=== PATIENT | female | born 1955 | race Caucasian/White ===

== ENCOUNTER 2022-03-23 08:44 | Outpatient (CLI) | payer MEDICARE, SELFPAY ==
[2022-03-23 15:03] LABS: Albumin* 4.3 g/dL (3.3-5.0); Chloride* 103 mmol/L (96-114)
[2022-03-23 15:04] LABS: Potassium* 4.3 mmol/L (3.6-5.1); Sodium* 139 mmol/L (135-149)
[2022-03-23 15:06] LABS: Aspartate Amino Transferase* 28 U/L (12-35); Bilirubin Total* 0.9 mg/dL (0.1-1.5); Blood Urea Nitrogen* 19 mg/dL (7-30); Carbon Dioxide* 27 mmol/L (20-32); Cholesterol* 198 mg/dL (90-199); Creatinine* 0.7 mg/dL (0.5-1.5); Estimated Glomerular Filt Rate 96 ml/min; Glucose* 116 mg/dL (60-115)
[2022-03-23 15:07] LABS: Alanine Aminotransferase* 23 U/L (4-35); Alkaline Phosphatase* 88 U/L (40-150); Calcium* 9.4 mg/dL (8.4-10.6); HDL Cholesterol* 56 mg/dL (>=50); LDL Cholesterol Calculated 118 mg/dL (<100); Triglycerides* 122 mg/dL (40-149)
[2022-03-23 15:34] LABS: TSH With Reflex to FT4* 0.582 uIU/mL (0.270-4.200)
== END 2022-03-23 08:45 | disposition home or self-care (01) ==
PROVIDERS: PCP Family Medicine; Visit Provider Family Medicine
DX: Z01.419 Encounter for gynecological examination (general) (routine) without abnormal findings (principal); E03.9 Hypothyroidism, unspecified; I10 Essential (primary) hypertension; E78.5 Hyperlipidemia, unspecified; F41.9 Anxiety disorder, unspecified
CPT/HCPCS: 80053; 80061; 84443

== ENCOUNTER 2023-03-26 09:17 | Outpatient (CLI) | payer MEDICARE, SELFPAY | END 2023-03-26 09:18 | disposition home or self-care (01) | PROVIDERS: PCP Family Medicine; Visit Provider Family Medicine | DX: Z00.00 Encounter for general adult medical examination without abnormal findings (principal); I10 Essential (primary) hypertension; E78.5 Hyperlipidemia, unspecified; E03.9 Hypothyroidism, unspecified; Z13.21 Encounter for screening for nutritional disorder | CPT/HCPCS: 80048; 80061; 82607; 84439; 84443 ==

== ENCOUNTER 2023-04-09 07:40 | Outpatient (CLI) | payer MEDICARE, SELFPAY | END 2023-04-09 07:41 | disposition home or self-care (01) | LOC: NFLDREF 04-13 09:12 | PROVIDERS: PCP Family Medicine; Referring Provider Family Medicine; Visit Provider Family Medicine | DX: R73.03 Prediabetes (principal) | CPT/HCPCS: 82947 ==

== ENCOUNTER 2023-04-28 08:57 | Outpatient (CLI) | payer MEDICARE, SELFPAY ==
[2023-04-28 11:35] LABS: Appearance Urine Clear (Clear); Bilirubin Urine Negative (Negative); Blood Urine Negative (Negative); Color Urine Yellow (Yellow); Glucose Urine Negative (Negative); Ketones Urine Negative (Negative); Leukocyte Esterase Urine Negative (Negative); Nitrite Urine Negative (Negative); Protein Urine Negative (Negative); Urobilinogen Urine 0.2 (0.2-1.0)
== END 2023-04-28 08:58 | disposition home or self-care (01) ==
PROVIDERS: PCP Family Medicine; Visit Provider Obstetrics & Gynecology
DX: N81.4 Uterovaginal prolapse, unspecified (principal)
CPT/HCPCS: 81003; 87086

== ENCOUNTER 2023-06-15 14:08 | Outpatient (CLI) | payer MEDICARE, SELFPAY ==
[2023-06-16 00:15] LABS: Glucose* 140 mg/dL (60-115)
== END 2023-06-15 14:09 | disposition home or self-care (01) ==
LOC: LONREF 14:09
PROVIDERS: PCP Family Medicine; Visit Provider Family Medicine
DX: E13.9 Other specified diabetes mellitus without complications (principal)
CPT/HCPCS: 82947

== ENCOUNTER 2023-11-26 07:00 | Outpatient (CLI) | payer MEDICARE, SELFPAY ==
--- NOTE | 2023-11-26 07:15 | US_ITS ---
Patient: JORGE DUBOIS Facility:?[facility] Patient ID:?[id number] Site Patient ID:?[id number]. Site :?[id number] Study:?US-OB Pelvis TA/TV Pelvic US-11/26/2023 8:18:02 AM Ordering Physician:Candace Monique Final Report: INDICATION: Fibroids. Postmenopausal. COMPARISON: None available. FINDINGS: Transvaginal and transabdominal ultrasound examination of the female pelvis was performed. Initial examination is performed with transabdominal technique and transvaginal technique is used for better visualization of the pelvic structures. The uterus is septate, with 2 well-defined cornua, but no sign of any surface groove. The uterus is anteverted with no evidence of mass. Specifically, no fibroids are evident. It measures 7.8 x 4.0 x 5.6 cm. There is heterogeneous echogenicity suggesting diffuse fibroid degeneration. There is a tiny amount of fluid in the cervical canal, of no clinical concern. The endometrial lining is increased in thickness at 7 mm for a postmenopausal patient, nonspecific. This could represent either endometrial hyperplasia or endometrial malignancy. The ovaries are normal in appearance and size, the right measuring 2.2 x 1.0 x 1.8 cm and the left measuring 1.8 x 0.9 x 1.3 cm. There is normal color doppler flow in both ovaries. There is no sign of free fluid in the pelvis. IMPRESSION: 1. No sign of any dominant fibroid in the normal-sized uterus. Myometrial heterogeneity consistent with diffuse fibroid degeneration. 2. Endometrial lining is mildly thickened at 7 millimeters for a postmenopausal patient. The appearance is nonspecific, differential includes endometrial hyperplasia or endometrial malignancy. 3. Normal appearance of the ovaries. Dictated by Darnell Cox MD @ 11/26/2023 10:12:58 AM Signed by:?Darnell Cox MD @11/26/2023 10:12:58 AM (Electronic Signature)
== END 2023-11-26 07:01 | disposition home or self-care (01) ==
LOC: US 07:00
PROVIDERS: PCP Family Medicine; Visit Provider Obstetrics & Gynecology
DX: D25.9 Leiomyoma of uterus, unspecified (principal); R93.89 Abnormal findings on diagnostic imaging of other specified body structures; Z78.0 Asymptomatic menopausal state
CPT/HCPCS: 76830; 76856

== ENCOUNTER 2023-12-13 08:56 | Outpatient (CLI) | payer MEDICARE, SELFPAY | END 2023-12-13 08:57 | disposition home or self-care (01) | LOC: LKVREF 08:57 | PROVIDERS: PCP Family Medicine; Visit Provider Family Medicine | DX: Z01.818 Encounter for other preprocedural examination (principal) | CPT/HCPCS: 80048 ==

== ENCOUNTER 2023-12-23 06:03 | Day surgery (SDC) | payer MEDICARE, SELFPAY ==
[2023-12-23] VITALS (21 sets, daily range): BP systolic 103–139; BP diastolic 54–86; PULSE 49–78; RESP 12–18; TEMP 35.6–36.7; O2SAT 90–96; BMI 38.3
--- OUTSIDE RECORDS SUMMARY | 2023-12-23 06:07 | XMS_ITS | Clinical Summary ---
Author Organization [facility] Address [address] [place] [address] Care Team Providers Care Paper Cone Machine Tender Name Role Phone Unavailable Primary Care Provider Unavailabl e Source Comments You are receiving this document as you are listed as the primary care provider,follow-up provider, or the patient has been referred to you for consultation.This is in compliance with the Medicare andMedicaid EHR Incentive Program,which states Providers who transition their patient to another setting of careor provider of care or refers their patient to another provider of care shouldprovide summary care record for each transition of care or referral. Etacts Allergies Active Allergy Reactions Criticality Noted Date Comments Sulfa Antibiotics 04/13/2020 Eye drops Medications Medication Sig Dispensed Refills Start Date End Date Status fluticasone propionate (FLONASE) 50 MCG/ACT nasal solution Place 1 [place] into both nostrils two times a day. 02/22/2020 Active FLOVENT HFA 220 MCG/ACT inhaler inhale 2 PUFFs by inhalation route twice daily. 01/14/2020 Active hydroCHLOROthiazide (ORETIC) 25 MG tablet 03/17/2020 Active levothyroxine (SYNTHROID) 150 MCG tablet Take 150 mcg by mouth daily. 01/26/2020 Active lisinopril (ZESTRIL) 2.5 MG tablet Take 2.5 mg by mouth daily. 01/14/2020 Active potassium chloride SA (KLOR-CON) 10 MEQ controlled release tablet Take 10 mEq by mouth daily. 02/11/2020 Active pravastatin (PRAVACHOL) 40 MG tablet take 1 tablet (40 MG) by mouth at bedtime. 01/14/2020 Active sertraline (ZOLOFT) 50 MG tablet Take 50 mg by mouth daily. 02/11/2020 Active Active Problems No known active problems Social History Tobacco Use Types Packs/Day Years Used Date Smoking Tobacco: Never Smokeless Tobacco: Never Sex and Gender Information Value Date Recorded Sex Assigned at Not on file Gender Identity Not on file Sexual Orientation Not on file Last Filed Vital Signs Vital Sign Reading Time Taken Comments Blood Pressure 145/76 04/13/2020 3:00 PM CDT Pulse 95 04/13/2020 3:00 PM CDT Temperature 36.6 ??C (97.9 ??F) 04/13/2020 3:00 PM CD T Respiratory Rate 18 03/24/2020 12:35 PM CDT Oxygen Saturation 97% 04/13/2020 3:00 PM CDT Inhaled Oxygen Concentration - - Weight - - Height - - Body Mass Index - - Plan of Treatment Health Maintenance Due Date Last Done Comments Colon Cancer Screening Plan Due 1955 Hep C Screening (Preventive Services) 1955 Mammogram 1955 Adult Preventive Visit 1974 Cholesterol 2001 DTaP/Tdap/Td (2 - Tdap) 10/29/2021 10/30/2011, 05/12 Pneumococcal 65+ Yrs (2 - PCV) 2021 06/10/2019 COVID-19 Vaccine ( season) 2023 09/22/2020, 08/25/2020 Influenza (Season Ended) 2024 020, 05/10/2019, 05/15/2018, Additional history exists HepA Aged Out 01/03/1999 No longer eligi ble based on patient's age to complete this topic Zoster/Shingles Completed 10/30/2017, 10/2017, 12/07/2016 HepB Aged Out No longer eligi ble based on patient's age to complete this topic Hib Aged Out No longer eligi ble based on patient's age to complete this topic IPV (Polio) Aged Out No longer eligi ble based on patient's age to complete this topic MCV4 Aged Out No longer eligi ble based on patient's age to complete this topic
--- OUTSIDE RECORDS SUMMARY | 2023-12-23 06:07 | XMS_ITS | Clinical Summary ---
Author Organization [facility] Address [place], [place] [address] Care Team Providers Care Rail Tractor Operator Name Role Phone Pcp, No Primary Care Provider Unavailabl e Allergies Active Allergy Reactions Criticality Noted Date Comments Sulfa (Sulfonamide Antibiotics) 08/27 In eye drops Medications Medication Sig Dispensed Refills Start Date End Date Status aspirin 81 mg tablet Take 81 mg by mouth once daily with a meal. Active multivitamin (MVI) tablet Take 1 tablet by mouth once daily. Active Fish Oil-DHA-EPA 1,200-144-216 mg Cap Take by mouth once daily. Active CALCIUM CARBONATE/VITAMIN D3 (CALCIUM 600 + D ORAL) Take by mouth once daily. Active GLUC HOLGUIN/CHONDRO HOLGUIN A/VIT C/MN (GLUCOSAMINE 1500 COMPLEX ORAL) Take by mouth once daily. Active lisinopril (PRINIVIL; ZESTRIL) 5 mg Tab Take 2.5 mg by mouth once daily. Active cetirizine (ZYRTEC) 10 mg tablet Take 10 mg by mouth once daily. Active hydrochlorothiazide 50 mg tablet Take 50 mg by mouth once daily. Active sertraline (ZOLOFT) 50 mg tablet Take 1 tablet by mouth once daily. 0 01/18/2010 Active levothyroxine (SYNTHROID) 150 mcg tablet Take 1 tablet by mouth once daily. 30 tablet 6 05/30/2010 Active fluticasone-salmetero l (ADVAIR DISKUS) 250-50 mcg/Dose diskus inhalerIndications:As thma Inhale 1 Puff by mouth every 12 hours. 1 Inhaler 0 10/24/2011 Active Active Problems Problem Noted Date Diagnosed Date DJD (degenerative joint disease) 09/18/2009 Hypertension 09/18/2009 Environmental allergies 09/18/2009 Hypothyroidism 09/18/2009 Diffuse cystic mastopathy 09/18/2009 Unspecified examination 09/18/2009 Overview: Last PAP smear: 12/2007 Last Breast Exam: 12/2007 Last mammogram: 12/2007 Last lipids: 11/2006 Last colonoscopy: 05/2008 Immunizations Name Administration Dates Next Due Hepatitis A (Adult) 01/03/1999,12/15/1996 Hepatitis B (Adult) 11/29/2001,07/29/2001,2000 Influenza, IIV3 (Age >=3 years) 04/15/2009 MMR 01/03/1999 Td (Age >=7 Years) 05/12/2006 Family History Medical History Relation Name Comments Heart Disease Father Cancer-breast Mother Relation Name Status Comments Father Mother Social History Tobacco Use Types Packs/Day Years Used Date Smoking Tobacco: Never Smokeless Tobacco: Never Alcohol Use Standard Drinks/Week Comments Not Asked 0 (1 standard drink = 0.6 oz pur e alcohol) Sex and Gender Information Value Date Recorded Sex Assigned at Not on file Gender Identity Not on file Sexual Orientation Not on file Obstetrics History Last Filed Vital Signs Vital Sign Reading Time Taken Comments Blood Pressure 122/70 09/11/2012 3:09 PM BOAT OUTBOARD ENGINE MECHANIC Pulse 88 09/11/2012 3:09 PM BOAT OUTBOARD ENGINE MECHANIC Temperature 37.6 ??C (99.6 ??F) 09/11/2012 3:09 PM CS T Respiratory Rate 16 09/11/2012 3:09 PM BOAT OUTBOARD ENGINE MECHANIC Oxygen Saturation 97% 09/11/2012 3:09 PM BOAT OUTBOARD ENGINE MECHANIC Inhaled Oxygen Concentration - - Weight 93.4 kg (206 lb) 06/13/2011 3:26 PM BOAT OUTBOARD ENGINE MECHANIC Height 157.5 cm (5' 2) 06/13/2011 3:26 PM BOAT OUTBOARD ENGINE MECHANIC Body Mass Index 37.68 06/13/2011 3:26 PM BOAT OUTBOARD ENGINE MECHANIC Plan of Treatment Health Maintenance Due Date Last Done Comments Tdap 11/20/1967 Depression screening for age 12+ 1968 BMI (ht and wt on same day) for age 18+ 1974 Hepatitis C screening for age 18-79 1974 Colonoscopy through age 75 2001 Lipids for age 45-75 2001 Mammogram for age 45-75 2001 Zoster (shingles) series for age 50+ (1 of 2) 11/20/19 07 Tetanus booster 05/12/2016 05/12/2006 DEXA/DXA scan for age 65+ 2021 Pneumococcal series for age 65+ (1 of 1 - PCV) 022 COVID-19 vaccine series (1 - 2022- season) 3 Influenza for age 65+ 03/26/2024 04/15/2009 Care Teams Rail Tractor Operator Relationship Specialty Start Date End Date Pcp, No . PCP - General 01/06/11
--- OUTSIDE RECORDS SUMMARY | 2023-12-23 06:07 | XMS_ITS | Encounter Summary ---
Author Organization [facility] Address [address] [place] [address] Care Team Providers Care Tail Edger Name Role Phone Juan Rock MD Primary Care Provider Garrett Madera MD Primary Care Provider [phone] Reason for Visit * Reason Comments Medication Refill zoloft Encounter Details Date Type Department Care Team (Late st Contact Info) Description 03/26/2017 Refill [facility] [address] [place] [address] Juan Rock MD NO INFO AVAILABLE 02/16/23 Medication Refill (zoloft ) Social History Tobacco Use Types Packs/Day Years Used Date Smoking Tobacco: Never Smokeless Tobacco: Never Alcohol Use Standard Drinks/Week Comments No 0 (1 standard drink = 0.6 oz pur e alcohol) Sex and Gender Information Value Date Recorded Sex Assigned at Not on file Gender Identity Not on file Sexual Orientation Not on file documented as of this encounter Miscellaneous Notes * Telephone Encounter - Bailey Corcoran ([place]), NITHYA - 03/26/2017 12:13 PM CDT Routing refill request to provider for review/approval because: diagnosis not listed on [facility] protocol for this medication Zoloft Last Written Prescription Date: 03/10/16 Last Fill Quantity: 90, # refills: 3 Last Office Visit with [facility] primary care provider: 09/23/16 Last PHQ-9 score on record= PHQ-9 SCORE 11/27/2011 Total Score 0 documented in this encounter Plan of Treatment Not on file documented as of this encounter Visit Diagnoses Diagnosis PMDD (premenstrual dysphoric disorder) Premenstrual tension syndromes documented in this encounter Care Teams Tail Edger Relationship Specialty Start Date End Date Juan Rock MD PCP - General mortgage loan counselor 02/15/15 04/20/19 Garrett Lee MD PCP - General Family Practice 04/21/19 documented as of this encounter
--- OUTSIDE RECORDS SUMMARY | 2023-12-23 06:07 | XMS_ITS | Referral Summary ---
Author Organization [facility] Address [address] [place] [address] Care Team Providers Care Scientific Technical Writer Name Role Phone Garrett Lee MD Primary Care Provider [phone] Allergies Active Allergy Reactions Criticality Noted Date Comments Cats 05/14/2014 Mold 05/14/2014 Sulfa Antibiotics 05/08/2011 EYE DROPS Medications Medication Sig Dispensed Refills Start Date End Date Status GLUCOSAMINE CHONDRO COMPLEX 500-400 MG OR TABS 1500mgGL/1200CH daily Active FISH OIL 1000 MG OR CAPS one tablet daily Active CALCIUM /VITAMIN D TABS 600-125 MG-IU OR one tablet BID Active MULTI-DAY PLUS IRON OR TABS Active ASPIRIN 81 MG OR TABS 1 tab po QD (Once per day) 100 3 12/08/2004 Active LISINOPRIL 2.5 MG OR TABS 1/2 tab qd Active VITAMIN D 400 UNIT OR TABS 0 03/19/2008 Active levothyroxine (SYNTHROID, LEVOTHROID) 150 MCG tablet Take 1 tablet by mouth daily. 90 tablet 3 11/03/2010 Active pravastatin (PRAVACHOL) 40 MG tablet Take 1 tablet by mouth daily. 90 tablet 3 11/03/2010 Active cetirizine (ZYRTEC) 10 MG tablet Take 1 tablet by mouth daily. 90 tablet 3 11/03/2010 Active fluticasone (FLOVENT HFA) 220 MCG/ACT inhaler Inhale 2 puffs into the lungs 2 times daily 3 Inhaler 3 05/14/2014 Active fluticasone (FLONASE) 50 MCG/ACT nasal spray [place] 1-2 sprays into both nostrils daily 3 Package 1 05/14/2014 Active HYDROCHLOROTHIAZIDE PO Take 25 mg by mouth Active potassium chloride (K-DUR) 10 MEQ tablet Take by mouth daily Active sertraline (ZOLOFT) 50 MG tabletIndications:PM DD (premenstrual dysphoric disorder) take one tablet by mouth daily 90 tablet 10/07/2017 Active Active Problems Problem Noted Date Diagnosed Date Pelvic relaxation 10/05/2016 HYPERLIPIDEMIA LDL GOAL <160 05/25/2010 Family history of malignant neoplasm of breast 0 02/14/2007 Acquired hypothyroidism 08/22/2002 Overview: Problem list name updated by automated process. Provider to review Hyperlipidemia 08/22/2002 Overview: Problem list name updated by automated process. Provider to review Essential hypertension, benign 08/22/2002 Resolved Problems Problem Noted Date Diagnosed Date Resolved Date Achilles tendinitis of left lower extremity 04/21/2019 07/11/2019 Tendonitis, Achilles, left 09/21/2018 0 03/01/2019 Achilles tendinitis of right lower extremity 6 08/03/2016 Immunizations Name Administration Dates Next Due Influenza (IIV3) PF 05/08/2011 TD,PF 7+ (Tenivac) 08/17/2006,03/11/1990 Social History Tobacco Use Types Packs/Day Years Used Date Smoking Tobacco: Never Smokeless Tobacco: Never Alcohol Use Standard Drinks/Week Comments No 0 (1 standard drink = 0.6 oz pur e alcohol) Adolescent Education Answer Date Record ed Getting School Help Needed Not on file 05/02 Sex and Gender Information Value Date Recorded Sex Assigned at Not on file Gender Identity Not on file Sexual Orientation Not on file Last Filed Vital Signs Vital Sign Reading Time Taken Comments Blood Pressure 130/82 04/13/2020 6:45 PM CDT Pulse 80 04/13/2020 6:45 PM CDT Temperature 36.1 ??C (97 ??F) 04/13/2020 4:38 PM CDT Respiratory Rate 18 04/13/2020 4:38 PM CDT Oxygen Saturation 97% 04/13/2020 6:45 PM CDT Inhaled Oxygen Concentration - - Weight 99.7 kg (219 lb 12.8 oz) 01/13/2016 5:45 PM CDT Height 157.5 cm (5' 2) 01/13/2016 5:45 PM CDT Body Mass Index 40.2 01/13/2016 5:45 PM CDT Plan of Treatment Not on file Procedures Procedure Name Priority Date/Time Associated Diagnosis Comments MA SCREENING BILATERAL W/ PORETR Routine 11/26/2022 4:28 PM CDT Breast cancer screening by mammogram BASIC METABOLIC PANEL STAT 04/13/2020 5:02 PM CDT PAP IMAGED THIN LAYER SCREEN Routine 01/13/2016 12:00 AM CDT COLONOSCOPY Routine 06/22/2008 7:15 AM FURNITURE REPRODUCER HCL TSH Routine 01/12/2008 DIAGNOSIS NOT YET DEFINED CL AFF A.M.A. LIPID PANEL Routine 01/23/2004 9:21 AM CDT Hyperlipidemia Nec/Nos Benign Hypertension from Last 3 Months or Most Recently Relevant to Health Maintenance Results * MA Screen Bilateral w/Porter (11/26/2022 4:28 PM CDT) Anatomical Region Laterality Modality Breast Bilateral Mammography Impressions 11/27/2022 12:41 PM CDT IMPRESSION: ACR BI-RADS Category 1: Negative RECOMMENDED FOLLOW-UP: Annual routine screening mammogram The results and recommendations of this examination will be communicated to the patient. Alea Preciado MD Narrative 11/27/2022 12:41 PM CDT BILATERAL FULL FIELD DIGITAL SCREENING MAMMOGRAM WITH TOMOSYNTHESIS Performed on: 11/26/22 Compared to: 10/06/2021 and 06/30/2018 Technique: ??This study was evaluated with the assistance of Computer-Aided Detection. ??Breast Tomosynthesis was used in interpretation. Findings: The breasts have scattered areas of fibroglandular density. ?? There is no radiographic evidence of malignancy. Garrett Lee MD IMG MAMMOGRAPHY DAVID CABAN * (ABNORMAL) Basic metabolic panel (04/13/2020 5:02 PM CDT) Sodium 138 133 - 144 mmol/L 04/13/2020 5:21 PM CDT [facility] Potassium 3.7 3.4 - 5.3 mmol/L 04/13/2020 5:21 PM CDT [facility] Chloride 104 94 - 109 mmol/L 04/13/2020 5:21 PM T [facility] Carbon Dioxide 27 20 - 32 mmol/L 04/13/2020 5:27 PM CDT [facility] Anion Gap 7 3 - 14 mmol/L 04/13/2020 5:27 PM CDT [facility] Glucose 158(H) 70 - 99 mg/dL 04/13/2020 5:27 PM CDT [facility] Urea Nitrogen 15 7 - 30 mg/dL 04/13/2020 5:27 PM T [facility] Creatinine 0.82 0.52 - 1.04 mg/dL 04/13/2020 5:27 PM T [facility] GFR Estimate 76 >60 mL/min/{1. 73_m2} 04/13/2020 5:27 PM T [facility] Comment: Non GFR Calc Starting 07/12/2018, serum creatinine based estimated GFR (eGFR) will be calculated using the Chronic Kidney Disease Epidemiology Collaboration (CKD-EPI) equation. GFR Estimate If Black 89 >60 mL/min/{1. 73_m2} 04/13/2020 5:27 PM T [facility] Comment: GFR Calc Starting 07/12/2018, serum creatinine based estimated GFR (eGFR) will be calculated using the Chronic Kidney Disease Epidemiology Collaboration (CKD-EPI) equation. Calcium 9.2 8.5 - 10.1 mg/dL 04/13/2020 5:27 PM T [facility] Blood specimen (specimen) 04/13/2020 5:02 PM CDT 04/13/2020 5:10 PM CDT Ryann Huang MD LAB - BLOOD ORDERABL ES [facility] [address] [place] [address], [facility] [phone] [facility] [address] [place], [place] [address] [phone] * PAP imaged thin layer, screen (01/13/2016 12:00 AM CDT) PAP LASHAE Meyer Report Patient Name: LEIGH DUBOIS MR#: [id number] Specimen #: [id number] Collected: 01/13/2016 Received: 01/15/2016 Reported: 01/16/2016 14:37 Ordering Phy(s): JAH ROCK SPECIMEN/STAIN PROCESS: Pap imaged thin layer prep screening (Surepath, FocalPoint with guided screening) ? Pap-Cyto x 1, Reflex HPV if NIL/ASCUS/LSIL x 1 SOURCE: Cervical, endocervical Pap imaged thin layer prep screening (Surepath, FocalPoint with guided screening) SPECIMEN ADEQUACY: Satisfactory for evaluation. -Transformation zone component present. CYTOLOGIC INTERPRETATION: Negative for Intraepithelial Lesion or Malignancy Electronically signed out by: CHANDLER Julien ??(ASCP) Processed and screened at [facility], [facility] CLINICAL HISTORY: Ablation Post Menopausal, Previous normal pap Date of Last Pap: 05/14/14, Papanicolaou Test Limitations: ??Cervical cytology is a screening test with limited sensitivity; regular screening is critical for cancer prevention; Pap tests are primarily effective for the diagnosis/preventi on of squamous cell carcinoma, not adenocarcinomas or other cancers. TESTING LAB LOCATION: [address] [place], [place] ??[address] COLLECTION SITE: Client: ??[facility] Location: ROSARIO MEYER (R) Cytologic material (specimen) 01/13/2016 01/15/2016 12:45 PM CDT Jah Rock MD LAB - [facility] SPECIMEN COPATH * COLONOSCOPY (06/22/2008 7:15 AM FURNITURE REPRODUCER) COLONOSCOPY Endoscopy Patient Name: Leigh Dubois ? Gender: F ? Procedure Date: 06/22/2008 7:15 AM ? Date of : 1955 ?Age: 52 ? Admit Type: Outpatient ? Attending MD: Charly Macedo MD ? Procedure: ? Colonoscopy Indications: ? Average risk screening for malignant neoplasm in the ? colon Providers: ? Charly Macedo MD Referring : ?Garrett Lee MD, Jah Rock MD Medicines: ? Fentanyl 100 micrograms IV, Midazolam 2 mg IV, Atropine ? 0.6 mg IV Complications: ? No immediate complications Procedure: ? - Prior to the procedure, a History and Physical was ? performed, and patient medication allergies were ? reviewed. The patient is competent. The risks and ? benefits of the procedure and the sedation options and ? risks were discussed with the patient. All questions ? were answered and informed consent was obtained. Patient ? identification and proposed procedure were verified by ? the physician in the procedure room. Mental Status ? Examination: alert and oriented. Airway Examination: ? normal oropharyngeal airway and neck mobility. ? Respiratory Examination: clear to auscultation. CV ? Examination: normal. ASA Grade Assessment: I - A normal, ? healthy patient. After reviewing the risks and benefits, ? the patient was deemed in satisfactory condition to ? undergo the procedure. The anesthesia plan was to use ? moderate sedation / analgesia (conscious sedation). ? Immediately prior to administration of medications, the ? patient was re-assessed for adequacy to receive ? sedatives. The heart rate, respiratory rate, oxygen ? saturations, blood pressure, adequacy of pulmonary ? ventilation, and response to care were monitored ? throughout the procedure. The physical status of the ? patient was re-assessed after the procedure. ? After obtaining informed consent, the colonoscope was ? passed under direct vision. Throughout the procedure, ? the patient's blood pressure, pulse, and oxygen ? saturations were monitored continuously. The [id number] ? #[id number] was introduced through the anus and advanced to ? the ileum. The colonoscopy was performed without ? difficulty. The patient tolerated the procedure well. ? The quality of the prep was good. ? Findings: ? The digital rectal exam was normal. The rectum, sigmoid colon, ? descending colon, splenic flexure, transverse colon, hepatic flexure, ? ascending colon, cecum, ileocecal valve and ileum appeared normal. The ? retroflexed view of the anal verge was normal and showed no anal or ? rectal abnormalities. The terminal ileum appeared normal. ? Impression: ?- The rectum, sigmoid colon, descending colon, splenic ? flexure, transverse colon, hepatic flexure, ascending ? colon, cecum, ileocecal valve and terminal ileum are ? normal. ? - The terminal ileum is normal. Recommendation: ?- Collect Hemoccults on three spontaneously passed ? stools annually. ? - Flexible Sigmoidoscopy in 3 years. ? - Return to primary care physician PRN. ? Raj Macedo M.D Charly Macedo MD Signed Date: 06/22/2008 8:03 AM Number of Addenda: 0 I was physically present for the entire viewing portion of the exam. Note initiated on 06/22/2008 7:17 AM RADIOLOGY RESULTS COLONOSCOPY RADIOLOG Y RESULTS 06/22/2008 7:15 AM FURNITURE REPRODUCER Garrett Lee MD PROCEDURES RADIOLOGY RESULTS * TSH [[id number]] (01/12/2008) Pathologist [facility] TSH 1.470@ mcU/mL MISYS Provider Abstract LABORATORY Performing Organization Address [facility] Co de Phone Number MISYS * A.M.A. LIPID PANEL (01/23/2004 9:21 AM CDT) Pathologist [facility] Cholesterol 194 <200 mg/dL [facility] Comment: Cholesterol Reference Range: <200 ??The NCEP recommends further ? evaluation of: ? 1. ??Patients with cholesterol ? greater than 200 mg/dL ? if additional risk factors ? are present. ? 2. ??All patients with a ? cholesterol greater than ? 240 mg/dL. Triglycerides 136 <150 mg/dL [facility] HDL Cholesterol 54 >40 mg/dL [facility] LDL Cholesterol Calculated 113 <130 mg/dL [facility] VLDL-Cholesterol 27 0 - 30 mg/dL [facility] Cholesterol/HDL Ratio 3.6 0.0 - 5.0 [facility] 01/23/2004 9:21 AM CDT 01/23/2004 9:26 AM CDT Tania Moreno MD LABORATORY [facility] from Last 3 Months or Most Recently Relevant to Health Maintenance Care Teams Scientific Technical Writer Relationship Specialty Start Date End Date Garrett Lee MD PCP - General Family Practice 04/21/19
--- OUTSIDE RECORDS SUMMARY | 2023-12-23 06:07 | XMS_ITS | Encounter Summary ---
Author Organization [facility] Address [address] [place] [address]. [place] [address] Care Team Providers Care Paradichlorobenzene Machine Operator Name Role Phone Juan Rock MD Primary Care Provider Garrett Madera MD Primary Care Provider [phone] Reason for Visit * Reason Comments Medication Refill Encounter Details Date Type Department Care Team (Late st Contact Info) Description 06/18/2017 Refill [facility] [address] [place] [phone] Juan Rock MD NO INFO AVAILABLE 02/16/23 Medication Refill Social History Tobacco Use Types Packs/Day Years [...] encounter Miscellaneous Notes * Telephone Encounter - Denia Henry RN - 06/18/2017 10:24 AM UPHOLSTERY REPAIRER E request received for Zoloft. Last office visit 09/23/16. See last PHQ-9 score and advise. PHQ-9 score: PHQ-9 SCORE 11/27/2011 Total Score 0 Routing refill request to provider for review/approval because: PHQ-9 not current; last office visit more than 6 months ago LSTERY REPAIRER documented in this encounter Plan of Treatment Not on file documented as of this encounter Visit Diagnoses Diagnosis PMDD (premenstrual dysphoric disorder) Premenstrual tension syndromes documented in this encounter Care Teams Paradichlorobenzene Machine Operator Relationship Specialty Start Date End Date Juan Rock MD PCP - General distiller 02/15/15 04/20/19 Garrett Lee MD PCP - General Family Practice 04/21/19 documented as of this encounter
--- OUTSIDE RECORDS SUMMARY | 2023-12-23 06:07 | XMS_ITS | Clinical Summary ---
Author Organization [facility] Address [address] [place] [id number] Care Team Providers Care Md Allergy Immunology Name Role Phone Garrett Lee MD Primary Care Provider [phone] Allergies Active Allergy Reactions Criticality Noted Date [...] Active fluticasone (FLONASE) 50 MCG/ACT nasal spray [place] 1-2 sprays into both nostrils daily 3 [...] (IIV3) PF 05/08/2011 TD,PF 7+ (Tenivac) 08/17/2006,03/11/1990 Family History Medical History Relation Comments C.A.D. Father at age 62--angina for 10 yrs before Thyroid Disease Maternal Grandmother Breast Cancer Mother at 73 C.A.D. Mother Thyroid Disease Mother Thyroid Disease Sister Arthritis Son juv. rheum.--cur rently in remission Relation Status Comments Father Maternal Grandmother Mother Sister Son Social History Tobacco Use Types Packs/Day Years [...] 01/13/2016 5:45 PM CDT Plan of Treatment Health Maintenance Due Date Last Done Comments ADVANCE CARE PLANNING 1955 ANNUAL REVIEW OF HM ORDERS 1955 CT COLONOGRAPHY 1955 DEXA 1955 FIT 1955 FLEX SIG 1955 MICROALBUMIN 1955 sDNA (Cologuard) 1955 HEPATITIS C SCREENING 1974 LIPID 01/22/2005 01/23/2004, 08/19/2002 TSH W/FREE T4 REFLEX 01/11/2009 01/12/2008, 01/23/2004, 08/19/2002 RSV VACCINE ( & 60+) (1 - 1-dose 60+ series) 2016 COLONOSCOPY 06/22/2018 06/22/2008 COLORECTAL CANCER SCREENING 06/22/2018 FALL RISK ASSESSMENT 2021 MEDICARE ANNUAL WELLNESS VISIT 2021 01/13/2016, 05/14/2014, 05/30/2012, Additional history exists COVID-19 Vaccine ( season) 2023 08/14/2022, 05/31/2021, 09/22/2020, Additional history exists GLUCOSE 04/13/2023 04/13/2020, 12/24, 11/28/2004, Additional history exists PHQ-2 (once per calendar year) 2023 INFLUENZA VACCINE (Season Ended) 2024 05/03/2022, 05/07/2021, 05/07/2020, Additional history exists MAMMO SCREENING 11/26/2024 11/26/2022, 09/23, 06/03/2020, Additional history exists DTAP/TDAP/TD IMMUNIZATION (3 - Td or Tdap) 03/09/2031 03/09/2021, 10/30/2011, 08/17/2006, Additional history exists ZOSTER IMMUNIZATION Completed 10/30/2017, 08/29/2017, 12/07/2016 PAP Discontinued 01/25/2019, 0709/2018, 01/13/2016, Additional history exists Pneumococcal Vaccine: 65+ Years Completed 06/07/2022, 06/10/2019 HPV IMMUNIZATION Aged Out No longer e ligible based on patient's age to complete this topic IPV IMMUNIZATION Aged Out No longer e ligible based on patient's age to complete this topic MENINGITIS IMMUNIZATION Aged Out No l onger eligible based on patient's age to complete this topic RSV MONOCLONAL ANTIBODY Aged Out No l onger eligible based on patient's age to complete this topic Procedures Procedure Name Priority Date/Time Associated Diagnosis Comments MA SCREENING BILATERAL W/ PORTER Routine 11/26/2022 4:28 PM CDT Breast cancer screening by mammogram BASIC METABOLIC PANEL STAT 04/13/2020 5:02 PM CDT PAP IMAGED THIN LAYER SCREEN Routine 01/13/2016 12:00 AM CDT COLONOSCOPY Routine 06/22/2008 7:15 AM INSURANCE ATTORNEY HCL TSH Routine 01/12/2008 DIAGNOSIS NOT YET [...] of malignancy. Garrett Lee MD IMG MAMMOGRAPHY ENZOE MEE * (ABNORMAL) Basic metabolic panel (04/13/2020 5:02 PM CDT) Sodium 138 133 - 144 mmol/L 04/13/2020 5:21 PM CDT [facility] Potassium 3.7 3.4 - 5.3 mmol/L 04/13/2020 5:[address] [facility] Chloride 104 94 - 109 mmol/L 04/13/2020 5:[address] [facility] Carbon Dioxide 27 20 - 32 mmol/L 04/13/2020 5:27 PM [facility] Anion Gap 7 3 - 14 mmol/L 04/13/2020 5:27 PM [facility] Glucose 158(H) 70 - 99 mg/dL 04/13/2020 5:27 PM [facility] Urea Nitrogen 15 7 - 30 mg/dL 04/13/2020 5:27 PM [facility] Creatinine 0.82 0.52 - 1.04 mg/dL 04/13/2020 5:27 PM [facility] GFR Estimate 76 >60 mL/min/{1. 73_m2} 04/13/2020 5:27 PM [facility] Comment: Non GFR Calc Starting 07/12/2018, serum creatinine based estimated GFR (eGFR) will be calculated using the Chronic Kidney Disease Epidemiology Collaboration (CKD-EPI) equation. GFR Estimate If Black 89 >60 mL/min/{1. 73_m2} 04/13/2020 5:27 PM [facility] Comment: GFR Calc Starting 07/12/2018, serum creatinine based estimated GFR (eGFR) will be calculated using the Chronic Kidney Disease Epidemiology Collaboration (CKD-EPI) equation. Calcium 9.2 8.5 - 10.1 mg/dL 04/13/2020 5:27 PM CDT [facility] Blood specimen (specimen) 04/13/2020 5:02 PM CDT 04/13/2020 5:10 PM CDT Ryann Huang MD LAB - BLOOD ORDERABL ES [facility] [address] [place] [address], [facility] [phone] [facility] [address] [place] [address], [facility] [phone] * PAP imaged thin layer, screen (01/13/2016 12:00 AM CDT) PAP NIL BETSY Melendez Report Patient Name: LEIGH DUBOIS MR#: [id number] Specimen #: [id number] Collected: 01/13/2016 Received: 01/15/2016 Reported: 01/16/2016 14:37 [...] CHANDLER Julien ??(ASCP) Processed and screened at [facility] CLINICAL HISTORY: Ablation Post Menopausal, Previous normal pap Date of Last Pap: 05/14/14, Papanicolaou Test Limitations: ??Cervical cytology is a screening test with limited sensitivity; regular screening is critical for cancer prevention; Pap tests are primarily effective for the diagnosis/preventi on of squamous cell carcinoma, not adenocarcinomas or other cancers. TESTING LAB LOCATION: [facility] [address] [place], [place] ??[phone] COLLECTION SITE: Client: ??[facility] [address] Location: ROSARIO (R) BETSY Cytologic material (specimen) 01/13/2016 01/15/2016 12:45 PM CDT Jah Rock MD LAB - [facility] SPECIMEN COPATH * COLONOSCOPY (06/22/2008 7:15 AM INSURANCE ATTORNEY) COLONOSCOPY Endoscopy Patient Name: Leigh Dubois ? Gender: F ? Procedure Date: 06/22/2008 7:15 AM ? Date of : 1955 ?Age: 52 ? Admit Type: Outpatient ? Attending MD: Charly Macedo MD ? Procedure: ? Colonoscopy Indications: ? Average risk screening for malignant neoplasm in the ? colon Providers: ? Charly Macedo MD Referring MD: ?Garrett Lee MD, Jah Rock MD Medicines: [...] oxygen ? saturations were monitored continuously. The [id number]-[id number] ? #[id number] was introduced through the anus and advanced [...] Return to primary care physician PRN. ? R Hellen Garcia Charly Macedo MD Signed Date: 06/22/2008 8:03 AM Number of Addenda: 0 I was physically present for the entire viewing portion of the exam. Note initiated on 06/22/2008 7:17 AM RADIOLOGY RESULTS COLONOSCOPY RADIOLOG Y RESULTS 06/22/2008 7:15 AM INSURANCE ATTORNEY Garrett Lee MD PROCEDURES Performing Organization Address [facility] Co de Phone Number RADIOLOGY RESULTS * TSH [[id number]] (01/12/2008) TSH 1.470@ mcU/mL [facility] Provider Abstract LABORATORY Performing Organization Address [facility] de Phone Number MISYS * A.M.A. LIPID PANEL (01/23/2004 9:21 AM CDT) Pathologist [facility] Cholesterol 194 <200 mg/dL [facility] Comment: Cholesterol Reference Range: <200 ??The NCEP recommends further ? evaluation of: ? 1. ??Patients with cholesterol ? greater than 200 mg/dL ? if additional risk factors ? are present. ? 2. ??All patients with a ? cholesterol greater than ? 240 mg/dL. Triglycerides 136 <150 mg/dL [facility] HDL Cholesterol 54 >40 mg/dL [facility] LDL Cholesterol Calculated 113 <130 mg/dL [facility] VLDL-Cholesterol 27 0 - 30 mg/dL [facility] Cholesterol/HDL Ratio 3.6 0.0 - 5.0 [facility] 01/23/2004 9:21 AM CDT 01/23/2004 9:26 AM CDT Tania Moreno MD LABORATORY [facility] from Last 3 Months or Most Recently Relevant to Health Maintenance Care Teams Md Allergy Immunology Relationship Specialty Start Date End Date Garrett Lee MD PCP - General Family Practice 04/21/19
--- OUTSIDE RECORDS SUMMARY | 2023-12-23 06:07 | XMS_ITS | Encounter Summary ---
Author Organization [employer] Address [address] [place] [address]. [place] [address] Care Team Providers Care Special Services Agent Name Role Phone Tania Moreno MD Primary Care Provider Jah Rock MD Primary Care Provider Garrett Madera MD Primary Care Provider [phone] Encounter Details Date Type Department Care Team (Late st Contact Info) Description 04/02/[address] [phone] Jah Rock MD NO INFO AVAILABLE 02/16/23 DIAGNOSIS NOT YET DEFINED (Primary Dx) Social History Tobacco Use Types Packs/Day Years Used Date Smoking Tobacco: Never Smokeless Tobacco: Never Alcohol Use Standard Drinks/Week Comments No 0 (1 standard drink = 0.6 oz pur e alcohol) Sex and Gender Information Value Date Recorded Sex Assigned at Not on file Gender Identity Not on file Sexual Orientation Not on file documented as of this encounter Progress Notes * 04/18/2003 11:59 PM CDTDOB: [birth year] 1st ASS'T: 2nd ASS'T: PRE-OPERATIVE DIAGNOSIS: Refractory menorrhagia. POST-OPERATI VE DIAGNOSIS: Refractory menorrhagia. OPERATION: Hysteroscopy, dilatation and curettage, thermal b alloon ablation. PROCEDURE: The patient was taken to the operating room and prepped and draped in t he usual fashion. The anterior lip of the cervix was grasped with a single-tooth tenaculum. Kt h endocervical curetting was performed and the diagnostic hysteroscope was placed. There were no lesi ons within the uterine cavity. The hysteroscope was removed. Thorough endometrial curetting was per formed. Then the thermal balloon was placed within the uterine cavity andthe uterine cavity was abbey ated using the Gen-Probe II thermal balloon ablation. The instruments were removed and the procedure terminated. The patient was taken to the recovery room in good condition. [id number] JAH ROCK MD MT: Document: [id number] [place], [place] Name: LEIGH DUBOIS LCN: SDS DSC: 03/16/2003 [place], [place] Name: MR#: : Procedure Date: LEIGH DUBOIS -26 1955 Doctor: JAH ROCK MD OPERATIVE REPORT Electronically filed by Elle Rosenbaum 04/18/2003 8:28 AM documented in this encounter Plan of Treatment Not on file documented as of this encounter Visit Diagnoses Diagnosis DIAGNOSIS NOT YET DEFINED- Primary documented in this encounter Care Teams Special Services Agent Relationship Specialty Start Date End Date Tania Moreno MD [address] [place] [id number] PCP - General 02/02/03 02/14/15 Jah Rock MD [address] [place] [address] PCP - General nursing tech 02/15/15 04/20/19 Garrett Lee MD [address] [place] [id number] PCP - General Family Practice 04/21/19 documented as of this encounter
[2023-12-23] MEDS: SODIUM CHLORIDE 0.9 % (FLUSH) 10 ML SYRINGE IVF (06:30)
[2023-12-23] MEDS: LACTATED RINGERS 1000 ML 1,000 ML 100 ML IV ×3 (06:30→10:53)
[2023-12-23] MEDS: PHENAZOPYRIDINE HCL 200 MG TABLET PO (06:35)
[2023-12-23 06:55] LABS: Hemoglobin* 14.5 gm/dL (12.0-16.0)
[2023-12-23 07:08] LABS: Creatinine* 0.6 mg/dL (0.5-1.5); Est. Creatinine Clearance* 41.19; Estimated Glomerular Filt Rate 98 ml/min
--- NOTE | 2023-12-23 07:27 | W.PM.H&PU ---
History & Physical Update History & Physical Update H&P Reviewed and patient assessed: No changes noted H&P Updates: Hb 14.5 Cr 0.6
[2023-12-23] MEDS: CEFAZOLIN 2 GM INJ IVP (07:42)
--- NOTE | 2023-12-23 08:06 | W.ANESCHARGE ---
Anesthesia Charges Start Date/Time Anesthesia Start Date: 12/23/23 Anesthesia Start Time: 07:25 Stop Date/Time Anesthesia Stop Date: 12/23/23 Anesthesia Stop Time: 11:19
[2023-12-23] MEDS: 0.9 % SODIUM CHLORIDE 50 ml INJECTION (10:14)
[2023-12-23] MEDS: VASOPRESSIN 20 UNIT/ML INJ INJECTION (10:15)
--- NOTE | 2023-12-23 10:18 | SUR.OPER ---
uterus 58g
[2023-12-23] MEDS: ESTROGENS, CONJUGATED VAGINAL 0.625 MG/G CREAM 1 APPLIC VAGINAL (10:58)
--- NOTE | 2023-12-23 11:21 | W.ANESCHARGE ---
Anesthesia Charges Start Date/Time Anesthesia Start Date: 12/23/23 Anesthesia Start Time: 07:25 Stop Date/Time Anesthesia Stop Date: 12/23/23 Anesthesia Stop Time: 11:19
[2023-12-23] MEDS: KETOROLAC 30 MG/ML inj IVP ×2 (17:07→22:55)
[2023-12-23] MEDS: LACTATED RINGERS 1000 ML 1,000 ML 125 ML IV (17:59)
[2023-12-23] MEDS: OXYCODONE 5 MG TABLET PO (18:08)
[2023-12-23] MEDS: DOCUSATE SODIUM 100 MG CAPSULE PO (21:26)
[2023-12-23] MEDS: CETIRIZINE HCL 10 MG TABLET PO (21:26)
[2023-12-23] MEDS: FLUTICASONE PROPIONATE NASAL 1 SPRAY NOSTRIL-B (21:28)
--- NOTE | 2023-12-23 21:31 | P.GYNPRC_ITS ---
Procedure Note Date of procedure: 12/23/23 Will [facility] bill your pro fee for this procedure?: Yes Pre-op diagnosis: Symptomatic uterovaginal prolapse: stage 1 uterine prolapse and stage 3 cystocele, suspected perineal body defect Stress urinary incontinence Post-op diagnosis: Absence of perineal body defect, otherwise as above Procedure: Total vaginal hysterectomy Modified Hi's culdoplasty Anterior colporrhaphy Retropubic mid urethral sling Cystoscopy Anesthesia: MAC and spinal Complications: None Surgeon: Candace Nation MD Senior Geotechnical Engineer: Mercedez Lozano Estimated blood loss (mL): 25 IV fluids (mL): 2,100 Urine Output (mL): 300 Pathology: specimen obtained, sent to pathology (uterus and cervix) Condition: stable Disposition: floor Findings: 1. On exam under anesthesia, the uterus was mobile and anteverted without any palpable adnexal masses. Stage III cystocele was again noted. 2. The uterus was of normal size and consistency. The bilateral tubes and ovaries were not visible. 3. Upon cystoscopy, performed multiple times throughout the procedure and after placement of the trocars for the retropubic sling, there was no injury to the bladder mucosa and bilateral ureteral jets were noted. Procedure Description: Patient was taken to the operating room with IV running. She received cefazolin in preoperative prophylaxis. She was positioned on the operating table in dorsal lithotomy position with legs fully supported in Yellofin stirrups. She was prepped and draped in the usual sterile fashion. Doll catheter was inserted. Exam under anesthesia revealed the above-noted findings. The anterior and posterior lips of the cervix were grasped with thyroid Maxine clamps. The cervicovaginal junction was infiltrated with dilute vasopressin. Cervicovaginal junction was incised with the scalpel circumferentially. The vaginal epithelium was dissected off the uterosacral ligaments with a combination of blunt and sharp dissection bilaterally. The anterior colpotomy was performed sharply and a [place] was placed between the uterus and bladder. Posterior colpotomy was performed sharply and a long weighted speculum was placed in the cul-de-sac. Bilateral uterosacral ligaments were clamped, cut, and suture ligated, and tagged for later identification. The cardinal ligaments were clamped, cut, and suture ligated. The remaining broad ligaments bilaterally were cauterized and transected with LigaSure Impact device. This freed the uterus from its attachments and it was delivered through the vagina. Though attempts were made to pack the bowel out of the way, I was unable to visualize either tube or ovary. The bowels were moved out of the pelvis with packing and the patient was placed in Trendelenburg position. Two modified Hi's sutures were placed as follows. The 1st was placed approximately 1 cm medial to the left vaginal angle, through the left uterosacral ligament approximately 2.5 cm above the vaginal cuff, pulled through the peritoneum of the cul-de-sac, through the right uterosacral ligament, approximately 2.5 cm above the cuff, and through the vagina about 1 cm from the right vaginal cuff angle. This was labeled #1 and tagged for later identification. Another stitch was placed just medial to the 1st through the vaginal cuff, and just above the 1st along the uterosacral ligaments and the peritoneum of the cul-de-sac. This was labelled #2 and tagged for later identification. Attention was turned to the anterior vaginal wall. It was infiltrated with a total of 10 mL of Marcaine and epinephrine. An incision was made from the vaginal cuff proceeding to the urethrovesical junction. The vaginal epithelium was dissected off the fibromuscularis beneath it with a combination of first sharp, with then blunt dissection at the angles. This was done bilaterally. The fibromuscularis was then plicated in the midline with interrupted sutures of 2-0 Vicryl. The vaginal epithelium was trimmed slightly on the each side, and the vaginal epithelium was closed with a running stitch of 2-0 Vicryl. The first of several cystoscopies was performed, revealing no damage to the bladder mucosa. The patient was given pyridium for better visualization of ureteral jets in cystoscopies to follow. The cystoscope was removed. Then, the modified Hi's sutures were tied down beginning with that labeled #2, followed by #1. After tying down each of the sutures, cystoscopy was performed, revealing bilateral ureteral jets. Thereafter, the vaginal epithelium was closed, incorporating the distalmost aspects of the uterosacral ligaments into the cuff angle closures. This was done in an interrupted fashion with 0 Vicryl. The mons was marked in the midline with a marker, extending from just above the clitoral cesar in the midline to just above the pubic symphysis. A lui was made approximately 2 cm just to the right and to the left of the midline, just over the pubic bone. 30 mL of saline was injected into the retropubic space just behind the pubic bone bilaterally. A weighted speculum was placed in the vagina. The anterior vaginal wall was grasped in the midline 1 cm beneath the urethral meatus with an Allis clamp, and a 2nd Allis clamp was placed at the urethrovesical junction. The intervening anterior vaginal wall was infiltrated with Marcaine with dilute epinephrine, carrying this infiltration to the pubic bone bilaterally. A 1.5 cm incision was made in the anterior vaginal wall, and Metzenbaum scissors were used to dissect the subepithelial tunnel from that incision to the pubic bone, both to the right and the left of the urethra. The Doll catheter was removed. A rigid catheter guide was placed inside a 16 [place] catheter, this was inserted into the bladder. Attention was first turned to placement of the left trocar. The trocar was placed within the blue plastic sheath. The trocar tip was inserted through the vaginal subepithelial tunnel on the patient's left side, and slowly guided upwards just behind the posterior aspect of the pubic bone, until the tip of the trocar was guided through the stab incision on the patient's right side. The bladder was deviated to the patient's right with the rigid catheter guide during this time. The plastic sheath was disconnected from the trocar, and the tip was grasped with hemostat. The trocar was then placed within the blue plastic sheath at the other end of the mesh. The trocar tip was inserted through the vaginal subepithelial tunnel on the patient's right side, and slowly guided upward just behind is posterior aspect of the pubic bone, until the tip of the trocar was guided through the stab incision on the patient's right side. The bladder was deviated to the patient's left with the rigid catheter guide during this time. The plastic sheath was again disconnected from the trocar, and the tip was grasped with a hemostat. Cystoscopy was then performed, revealing no injury to the bladder mucosa and the plastic sheaths were found to be freely movable outside the bladder dome. Doll catheter was again inserted. The blue plastic sheaths were pulled through the stab incisions just above the pubic bone, and the mesh was tensioned over a #9 Hegar dilator. The mesh was trimmed to beneath the skin on her abdomen, and the sites were closed with surgical glue. The vaginal incision was closed with a running, locked stitch of 2 0 Vicryl. Patient tolerated procedure well. She was taken to recovery area in stable condition.
--- NOTE | 2023-12-23 22:31 | PC.NURSE ---
End of Shift: Patient pleasant and cooperative. Afebrile. Rating pain in abdomen and back 2-5/10 and PRN Oxycodone given x1. Aqua k pad to back. Up to chair and walking in hallway x1 with SBA. Tolerating regular diet with no nausea. Doll patent. No bleeding noted.
[2023-12-24] MEDS: LACTATED RINGERS 1000 ML 1,000 ML 125 ML IV (01:52)
[2023-12-24 03:00] VITALS: BP 109/66; PULSE 55; RESP 16; TEMP 36.4; O2SAT 93
[2023-12-24] MEDS: LEVOTHYROXINE 100 MCG TABLET PO (06:33)
[2023-12-24] MEDS: LEVOTHYROXINE 50 MCG TABLET PO (06:34)
--- NOTE | 2023-12-24 06:56 | PC.NURSE ---
Patient pleasant, alert and oriented. Up to the bathroom with stand by assist of one. Denied pain throughout night. Pantyliner had a moderate amount of red blood at 0100. Changed pad to Maxi pad at that time. Small amount of red blood in pad since that?time. Catheter draining clear dark eric urine.?
[2023-12-24 07:43] LABS: Hemoglobin* 12.4 gm/dL (12.0-16.0)
[2023-12-24 08:10] LABS: Creatinine* 0.7 mg/dL (0.5-1.5); Est. Creatinine Clearance* 41.19; Estimated Glomerular Filt Rate 95 ml/min
[2023-12-24 08:25] VITALS: BP 125/71; PULSE 75; RESP 16; TEMP 36.4; O2SAT 98
--- NOTE | 2023-12-24 08:40 | PM.GYNDS1 ---
DS: Providers Provider Date Seen: 12/24/23 Primary care physician: Dwaine Lee MD Attending Physician on discharge: Debi Mclean MD Date of Discharge: 12/24/23 DS: Diagnosis Discharge Diagnosis (1) S/P hysterectomy: Status: Acute Problem details: Total Vaginal Hysterectomy, Modified Hi's culdoplasty, anterior repair, retropubic mid urethral sling. MILITARY PERSONNEL SPECIALIST-Discharge Summary Hospital Course Hospital Course Narrative: Patient is a 68 year old admitted on 12/23/2023 for elective surgery. Indication for surgery: Pelvic organ prolapse, stress urinary incontinence. Intraoperative findings were notable for Stage III cystocele. Normal cystoscopy findings. She had an uncomplicated surgery. Postoperative course has been uneventful. Vitals have been stable. She has remained afebrile. Today, on postoperative day 1, she reports the pain is well controlled. She has been able to ambulate Without difficulty. She is tolerating regular diet. She is passing flatus. Doll catheter has been removed, and she is voiding without difficulty. Time Spent with Patient Time attestation: Total time spent providing and/or coordinating discharge services: Time spent: Less than 30 minutes MILITARY PERSONNEL SPECIALIST - Exam Physical Exam: Vital signs: Temp Pulse Resp BP Pulse Ox O2 Del Method 97.5 F L 75 16 125/71 98 Room Air 12/24/23 08:25 12/24/23 08:25 12/24/23 08:25 12/24/23 08:25 12/24/23 08:25 12/24/23 08:25 Narrative: VITAL SIGNS: As noted above. GENERAL APPEARANCE: Alert, cooperative female in no acute distress. MOOD & AFFECT: Normal. ABDOMEN: Soft, non-distended and nontender. : Normal external female anatomy. Vaginal packing removed and minimally soaked. Doll catheter with 200mL of yellow urine. EXTREMITIES: Nonedematous. Well perfused. Nontender. MILITARY PERSONNEL SPECIALIST - DS: Data Data Completed and Pending Labs on day of discharge: Labs from last 24 hours 12/24/23 07:11 Hgb 12.4 Creatinine 0.7 Estimated Creat Clear 41.19 Estimated GFR 95 Procedures Procedures: Procedures Operation Date: 12/23/23 07:15 Actual Procedure Side Surgeon p M/S-Total Vaginal Hysterectomy, Modified Hi's Culdoplasty, Anterior Colporrhaphy, Retro Pubic Mid-Urethral Sling, Cystoscopy Candace Nation MD Discharge Plan Discharge Disposition: Home w/ Parent or Adult Discharging Surgeon: Candace Nation Follow-Up Appointment: Dr. Nation, [facility], January 06 @ 3:00 pm Prescriptions: New docusate sodium 100 mg Capsule 100 mg PO BID PRN (Reason: Constipation) Qty: 30 0RF ibuprofen 600 mg Tablet 600 mg PO Q6H Qty: 30 0RF Continued cholecalciferol (vitamin D3) 50 mcg (2,000 unit) capsule 4,000 unit PO DAILY coenzyme Q10 10 mg capsule 10 mg PO DAILY multivitamin Tablet 1 tab PO DAILY cetirizine 10 mg tablet 10 mg PO DAILY PRN apple cider vinegar PO Calcium Magnesium plus D 400-167-133 mg-mg-unit tablet 1 tab PO DAILY berberine PO aspirin [Adult Low Dose Aspirin] 81 mg tablet,delayed release (DR/EC) 81 mg PO 3XW potassium chloride 10 mEq capsule, extended release 10 meq PO DAILY pravastatin 40 mg tablet 40 mg PO HS fluticasone propionate 50 mcg/actuation spray,suspension 1 spray intranasal BID Qty: 16 11RF Rx Instructions: administer into each nostril levothyroxine 150 mcg tablet 150 mcg PO DAILY Qty: 90 3RF albuterol sulfate [Ventolin HFA] 90 mcg/actuation HFA aerosol inhaler 2 puff inhalation Q6H PRN (Reason: shortness of breath or wheezing) Qty: 18 11RF hydrochlorothiazide 25 mg tablet 25 mg PO QAM Qty: 90 1RF No Action metformin 750 mg tablet extended release 24 hr 1,500 mg PO DAILY Qty: 180 3RF Activity Level: No Weight Bearing Activity Detail: No lifting more than 20 pounds, nothing vaginally for 6 weeks. Discharge Diet: Regular Patient Instructions: Ibuprofen (By mouth), Laxative, Stool Softeners (By mouth), Vaginal Hysterectomy (DC) Follow-up: Candace Nation MD [Staff Physician] - 01/07/24 3:00 pm Dwaine Lee MD [Primary Care Provider] - Discharge Orders: Discharge Order (Routine); Ordered 12/24/23 Ordered By: Debi Mclean
[2023-12-24] MEDS: DOCUSATE SODIUM 100 MG CAPSULE PO (09:40)
[2023-12-24] MEDS: IBUPROFEN 600 MG TABLET PO (09:41)
--- NOTE | 2023-12-24 15:20 | PC.NURSE ---
Discharge Note: The patient discharged home with her all discharge instructions were given and discussed with the patient. Post void residual was completed... bladder scanned for less than 50cc. The patient reports mild soreness in her lower abdomen. The patients pain is under control with scheduled Tylenol. 2 lower perineum 1-2cm incisions in tact with glue. Small amount of vaginal bleeding reproted by the patient. Lory BARRIGA BSN
== END 2023-12-24 13:27 | disposition home or self-care (01) ==
LOC: OR 06:04 → MEDSURG 06:08
PROVIDERS: PCP Family Medicine; Visit Provider Obstetrics & Gynecology
PROC: 0TJB8ZZ Inspection of Bladder, Via Natural or Artificial Opening Endoscopic (ICD-10-PCS; CPT 57260; principal; 2023-12-23 07:15)
DX: N81.3 Complete uterovaginal prolapse (principal); N39.3 Stress incontinence (female) (male); N95.2 Postmenopausal atrophic vaginitis; E13.9 Other specified diabetes mellitus without complications; Z99.89 Dependence on other enabling machines and devices; G47.33 Obstructive sleep apnea (adult) (pediatric); I10 Essential (primary) hypertension; E78.5 Hyperlipidemia, unspecified; E03.9 Hypothyroidism, unspecified; F41.9 Anxiety disorder, unspecified; J45.909 Unspecified asthma, uncomplicated
CPT/HCPCS: 58263; 57240; 57288; 00944; 36415; 51798; 82565; 85018; 86850; 86900; 86901; 88309; 88341; 88342; A9270; C1771; J0690; J1100; J1630; J1885; J2405; J2704; J3010; J3475; J3490; J7120

== ENCOUNTER 2023-12-28 11:35 | Outpatient (CLI) | payer MEDICARE, SELFPAY ==
--- OUTSIDE RECORDS SUMMARY | 2024-01-13 12:36 | XMS_ITS | Referral Summary ---
Author Organization [facility] Address [address] [place] [address] Care Team Providers Care Pre Assembly Wirer Name Role Phone Garrett Lee MD Primary Care Provider [phone] Encounters Date Type Department Care Team Description 01/06/2024 Travel 01/06/2024 10:05 AM CDT - 01/06/2024 11:59 PM CDT Hospital Encounter [facility] [address], [address] [place] [id number] Doctor, None, Sissy Blunt MD Visit for screening mammogram Discharge Disposition: Home or Self Care from Last 3 Months Allergies Active Allergy Reactions Criticality Noted Date [...] Active fluticasone (FLONASE) 50 MCG/ACT nasal spray [place] 1-2 sprays into both nostrils daily 3 [...] Comments MA SCREENING BILATERAL W/ PORTER Routine 01/06/2024 10:28 AM CDT Visit for screening mammogram BASIC METABOLIC PANEL STAT 04/13/2020 5:02 PM CDT PAP IMAGED THIN LAYER SCREEN Routine 01/13/2016 12:00 AM CDT COLONOSCOPY Routine 06/22/2008 7:15 AM SCREW DRIVER OPERATOR HCL TSH Routine 01/12/2008 DIAGNOSIS NOT YET DEFINED CL AFF A.M.A. LIPID PANEL Routine 01/23/2004 9:21 AM CDT Hyperlipidemia Nec/Nos Benign Hypertension from Last 3 Months or Most Recently Relevant to Health Maintenance Results * MA Screening Bilateral w/ Porter (01/06/2024 10:28 AM CDT) Anatomical Region Laterality Modality Breast Bilateral Mammography Impressions 01/06/2024 11:13 AM CDT IMPRESSION: ACR BI-RADS Category 1: Negative BREAST CANCER SCREENING RECOMMENDATION: Routine yearly mammography beginning at age 40 or as discussed with your provider. The results and recommendations of this examination will be communicated to the patient. Alea Preciado MD Narrative 01/06/2024 11:13 AM CDT BILATERAL FULL FIELD DIGITAL SCREENING MAMMOGRAM WITH TOMOSYNTHESIS Performed on: 01/06/24 Compared to: 11/26/2022, 10/06/2021, and 06/03/2020 Technique: ??This study was evaluated with the assistance of Computer-Aided Detection. ??Breast Tomosynthesis was used in interpretation. Findings: The breasts have scattered areas of fibroglandular density. ?? There is no radiographic evidence of malignancy. Sissy Blair MD IMG MAMMOGRAPHY ORD ERABLES * (ABNORMAL) Basic metabolic panel (04/13/2020 5:02 PM CDT) Sodium 138 133 - 144 mmol/L 04/13/2020 5:21 PM CDT [facility] Potassium 3.7 3.4 - 5.3 mmol/L 04/13/2020 5:21 PM T [facility] Chloride 104 94 - 109 mmol/L 04/13/2020 5:21 PM [facility] Carbon Dioxide 27 20 - 32 mmol/L 04/13/2020 5:27 PM [facility] Anion Gap 7 3 - 14 mmol/L 04/13/2020 5:27 PM [facility] Glucose 158(H) 70 - 99 mg/dL 04/13/2020 5:27 PM [facility] Urea Nitrogen 15 7 - 30 mg/dL 04/13/2020 5:27 PM [facility] Creatinine 0.82 0.52 - 1.04 mg/dL 04/13/2020 5:27 PM [facility] GFR Estimate 76 >60 mL/min/{1. 73_m2} 04/13/2020 5:27 PM [facility] Comment: Non GFR Calc Starting 07/12/2018, serum creatinine based estimated GFR (eGFR) will be calculated using the Chronic Kidney Disease Epidemiology Collaboration (CKD-EPI) equation. GFR Estimate If Black 89 >60 mL/min/{1. 73_m2} 04/13/2020 5:27 PM [facility] Comment: GFR Calc Starting 07/12/2018, serum creatinine based estimated GFR (eGFR) will be calculated using the Chronic Kidney Disease Epidemiology Collaboration (CKD-EPI) equation. Calcium 9.2 8.5 - 10.1 mg/dL 04/13/2020 5:[address] [facility] Blood specimen (specimen) 04/13/2020 5:02 PM CDT 04/13/2020 5:10 PM CDT Ryann Huang MD LAB - BLOOD ORDERABL ES [facility] [address] [place] [address], [facility] [phone] [facility] [address] [place] [address], [facility] [phone] * PAP imaged thin layer, screen (01/13/2016 12:00 AM CDT) PAP NIL BETSY Meyer Report Patient Name: LEIGH HARVEY MR#: [id number] Specimen #: [id number] Collected: 01/13/2016 Received: 01/15/2016 Reported: 01/16/2016 14:37 [...] CHANDLER Julien ??(ASCP) Processed and screened at [facility] CLINICAL HISTORY: Ablation Post Menopausal, Previous normal pap Date of Last Pap: 05/14/14, Papanicolaou Test Limitations: ??Cervical cytology is a screening test with limited sensitivity; regular screening is critical for cancer prevention; Pap tests are primarily effective for the diagnosis/preventi on of squamous cell carcinoma, not adenocarcinomas or other cancers. TESTING LAB LOCATION: [facility] [address] [place], [place] ??[phone] COLLECTION SITE: Client: ??[facility] Location: [place] iYRNas MEYER Cytologic material (specimen) 01/13/2016 01/15/2016 12:45 PM CDT Jah Rock MD LAB - [facility] SPECIMEN COPATH * COLONOSCOPY (06/22/2008 7:15 AM SCREW DRIVER OPERATOR) COLONOSCOPY Endoscopy Patient Name: Leigh Harvey ? Gender: F ? Procedure Date: 06/22/2008 [...] saturations were monitored continuously. The PCF-Q180AL ? #[id number] was introduced through the anus and advanced [...] COLONOSCOPY RADIOLOG Y RESULTS 06/22/2008 7:15 AM SCREW DRIVER OPERATOR Garrett Lee MD PROCEDURES Performing Organization Address City/[facility]/ZIP Co de Phone Number RADIOLOGY RESULTS * TSH [[id number]] (01/12/2008) Pathologist [facility] TSH 1.470@ mcU/mL MISYS Provider Abstract LABORATORY Performing Organization Address [facility] Co de Phone Number MISYS * A.M.A. LIPID PANEL (01/23/2004 9:21 AM CDT) Cholesterol 194 <200 mg/dL [facility] Comment: Cholesterol Reference Range: <200 ??The NCEP recommends further ? evaluation of: ? 1. ??Patients with cholesterol ? greater than 200 mg/dL ? if additional risk factors ? are present. ? 2. ??All patients with a ? cholesterol greater than ? 240 mg/dL. Triglycerides 136 <150 mg/dL [facility] HDL Cholesterol 54 >40 mg/dL [facility] LDL Cholesterol Calculated 113 <130 mg/dL [facility] VLDL-Cholesterol 27 0 - 30 mg/dL [facility] Cholesterol/HDL Ratio 3.6 0.0 - 5.0 [facility] 01/23/2004 9:21 AM CDT 01/23/2004 9:26 AM CDT Tania Moreno MD LABORATORY [facility] from Last 3 Months or Most Recently Relevant to Health Maintenance Care Teams Pre Assembly Wirer Relationship Specialty Start Date End Date Garrett Lee MD PCP - General Family Practice 04/21/19
--- OUTSIDE RECORDS SUMMARY | 2024-01-13 12:36 | XMS_ITS | Clinical Summary ---
Author Organization [facility] Address [address] [place] [address] Care Team Providers Care Wireless Sales Consultant Name Role Phone Garrett Lee MD Primary Care Provider [phone] Allergies Active Allergy Reactions Criticality Noted Date [...] Active fluticasone (FLONASE) 50 MCG/ACT nasal spray [place] 1-2 sprays into both nostrils daily 3 [...] tendinitis of right lower extremity 6 08/03/2016 Encounters Date Type Department Care Team Description 01/06/2024 10:05 AM CDT - 01/06/2024 11:59 PM CDT Hospital Encounter [facility] [address], [address] [place] [address] Doctor, None, Sissy Blunt MD Visit for screening mammogram Discharge Disposition: Home or Self Care 01/06/2024 Travel from Last 3 Months Immunizations Name Administration Dates Next Due Influenza [...] 05/14/2014, 05/30/2012, Additional history exists COVID-19 Vaccine (2022- season) 2023 08/14/2022, 05/31/2021, 09/22/2020, Additional history exists GLUCOSE 04/13/2023 04/13/2020, 12/24, 11/28/2004, Additional history exists PHQ-2 (once per calendar year) 2023 MAMMO SCREENING 01/05/2026 01/06/2024, 0 10/2022, 10/06/2021, Additional history exists DTAP/TDAP/TD IMMUNIZATION (3 - Td or Tdap) 03/09/2031 03/09/2021, 10/30/2011, 08/17/2006, Additional history exists ZOSTER IMMUNIZATION Completed 10/30/2017, 08/29/2017, 12/07/2016 PAP Discontinued 01/25/2019, 09/2018, 01/13/2016, Additional history exists Pneumococcal Vaccine: 65+ Years Completed 06/07/2022, 06/10/2019 INFLUENZA VACCINE Completed 06/06/2023, , 05/07/2021, Additional history exists HPV IMMUNIZATION Aged Out No longer e [...] AM CDT COLONOSCOPY Routine 06/22/2008 7:15 AM PUNCH PRESS FEEDER HCL TSH Routine 01/12/2008 DIAGNOSIS NOT YET [...] - 144 mmol/L 04/13/2020 5:21 PM CDT [facility] Potassium 3.7 3.4 - 5.3 mmol/L 04/13/2020 5:21 PM T [facility] Chloride 104 94 - 109 mmol/L 04/13/2020 5:21 PM [facility] Carbon Dioxide 27 20 - 32 mmol/L 04/13/2020 5:27 PM CDT [facility] Anion Gap 7 3 - 14 mmol/L 04/13/2020 5:27 PM [facility] Glucose 158(H) 70 - 99 mg/dL 04/13/2020 5:27 PM T [facility] Urea Nitrogen 15 7 - 30 mg/dL 04/13/2020 5:27 PM T [facility] Creatinine 0.82 0.52 - 1.04 mg/dL 04/13/2020 5:27 PM [facility] GFR Estimate 76 >60 mL/min/{1. 73_m2} 04/13/2020 5:27 PM T [facility] Comment: Non GFR Calc Starting 07/12/2018, serum creatinine based estimated GFR (eGFR) will be calculated using the Chronic Kidney Disease Epidemiology Collaboration (CKD-EPI) equation. GFR Estimate If Black 89 >60 mL/min/{1. 73_m2} 04/13/2020 5:27 PM CDT [facility] Comment: GFR Calc Starting 07/12/2018, serum creatinine based estimated GFR (eGFR) will be calculated using the Chronic Kidney Disease Epidemiology Collaboration (CKD-EPI) equation. Calcium 9.2 8.5 - 10.1 mg/dL 04/13/2020 5:27 PM CDT [facility] Blood specimen (specimen) 04/13/2020 5:02 PM CDT 04/13/2020 5:10 PM CDT Ryann Huang MD LAB - BLOOD ORDERABL ES [facility] [address] [place], [place] [address] [phone] [facility] [address] [place] [address], [facility] [phone] * PAP imaged thin layer, screen (01/13/2016 12:00 AM CDT) PAP LASHAE Melendez Report Patient Name: LEIGH HARVEY MR#: [id number] Specimen #: [id number] Collected: 01/13/2016 Received: 01/15/2016 Reported: 01/16/2016 14:37 [...] CHANDLER Julien ??(ASCP) Processed and screened at [facility] CLINICAL HISTORY: Ablation Post Menopausal, Previous normal pap Date of Last Pap: 05/14/14, Papanicolaou Test Limitations: ??Cervical cytology is a screening test with limited sensitivity; regular screening is critical for cancer prevention; Pap tests are primarily effective for the diagnosis/preventi on of squamous cell carcinoma, not adenocarcinomas or other cancers. TESTING LAB LOCATION: [facility] [address] [place], [place] ??[phone] COLLECTION SITE: Client: ??[facility] Location: [place] (R) BETSY Cytologic material (specimen) 01/13/2016 01/15/2016 12:45 PM CDT Jah Rock MD LAB - [facility] AL SPECIMEN COPATH * COLONOSCOPY (06/22/2008 7:15 AM PUNCH PRESS FEEDER) COLONOSCOPY Endoscopy Patient Name: Leigh Harvey ? [...] saturations were monitored continuously. The PCF-Q180AL ? #[id number] was introduced through the anus and advanced [...] COLONOSCOPY RADIOLOG Y RESULTS 06/22/2008 7:15 AM PUNCH PRESS FEEDER Garrett Lee MD PROCEDURES RADIOLOGY RESULTS * TSH [[id number]] (01/12/2008) TSH 1.470@ mcU/mL MISANGEL Provider Abstract LABORATORY Performing Organization Address [facility] Co de Phone Number MISYS * A.M.A. LIPID PANEL (01/23/2004 9:21 AM CDT) Cholesterol 194 <200 mg/dL [facility] Comment: Cholesterol Reference Range: <200 ??The NCEP recommends further ? evaluation of: ? 1. ??Patients with cholesterol ? greater than 200 mg/dL ? if additional risk factors ? are present. ? 2. ??All patients with a ? cholesterol greater than ? 240 mg/dL. Triglycerides 136 <150 mg/dL [facility] HDL Cholesterol 54 >40 mg/dL [facility] LDL Cholesterol Calculated 113 <130 mg/dL [facility] VLDL-Cholesterol 27 0 - 30 mg/dL [facility] Cholesterol/HDL Ratio 3.6 0.0 - 5.0 [facility] 01/23/2004 9:21 AM CDT 01/23/2004 9:26 AM CDT Tania Moreno MD LABORATORY Performing Organization Address City/[facility] Co de Phone Number [facility] from Last 3 Months or Most Recently Relevant to Health Maintenance Care Teams Wireless Sales Consultant Relationship Specialty Start Date End Date Garrett Lee MD PCP - General Family Practice 04/21/19
--- OUTSIDE RECORDS SUMMARY | 2024-01-13 12:36 | XMS_ITS | Encounter Summary ---
Author Organization [facility] Address [address] [place] [address] Care Team Providers Care Pastry Wrapper Name Role Phone Juan Rock MD Primary Care Provider Garrett Madera MD Primary Care Provider [phone] Reason for Visit * Reason Comments Medication Refill Encounter Details Date Type Department Care Team (Late st Contact Info) Description 06/18/2017 Refill [facility] Women[facility] [address] [place] [phone] Juan Rock MD NO INFO AVAILABLE 02/16/23 [...] Denia Henry RN - 06/18/2017 10:24 AM HORTICULTURAL THERAPIST E request received for Zoloft. Last office visit 09/23/16. See last PHQ-9 score and advise. PHQ-9 score: PHQ-9 SCORE 11/27/2011 Total Score 0 Routing refill request to provider for review/approval because: PHQ-9 not current; last office visit more than 6 months ago ICULTURAL THERAPIST documented in this encounter Plan of Treatment Not on file documented as of this encounter Visit Diagnoses Diagnosis PMDD (premenstrual dysphoric disorder) Premenstrual tension syndromes documented in this encounter Care Teams Pastry Wrapper Relationship Specialty Start Date End Date Juan Rock MD PCP - General hand cooper helper 02/15/15 04/20/19 Garrett Lee MD PCP - General Family Practice 04/21/19 documented as of this encounter
--- OUTSIDE RECORDS SUMMARY | 2024-01-13 12:36 | XMS_ITS | Encounter Summary ---
Author Organization [facility] Address [address] [place] [address] Care Team Providers Care Crystal Flat Grinder Name Role Phone Garrett Lee MD Primary Care Provider [phone] Reason for Referral * Diagnostic Imaging Mammo (Routine) - Pending Review Specialty Diagnoses / Procedures Referred By Shannan grayson Referred To Contact Radiology. Diagnoses Visit for screening mammogram Procedures MA Screening Bilateral w/ Porter MA Screen Bilateral w/Porter Sissy Blair MD [facility] [address] [address] Referral ID Status Reason Start Date Expiration Date V isits Requested Visits Authorized [id number] Pending Review 01/05/2024 01/04/2025 1 1 Reason for Visit * Diagnostic Imaging Mammo (Routine) - Pending Review Specialty Diagnoses / Procedures Referred By Shannan grayson Referred To Contact Radiology. Diagnoses Visit for screening mammogram Procedures MA Screening Bilateral w/ Porter MA Screen Bilateral w/Porter Sissy Blair MD [facility] [address] [address] Referral ID Status Reason Start Date Expiration Date V isits Requested Visits Authorized [id number] Pending Review 01/05/2024 01/04/2025 1 1 Encounter Details Date Type Department Care Team (Late st Contact Info) Description 01/06/2024 10:05 AM CDT - 01/06/2024 11:59 PM CDT Hospital Encounter [facility] [address], [address] [place] [address] Doctor, None, Sissy Blunt MD [facility] [address] [facility] [address] [place] [address] Visit for screening mammogram Discharge Disposition: Home or Self Care Social History Tobacco Use Types Packs/Day Years [...] on file documented as of this encounter Medications at Time of Discharge Medication Sig Dispensed Refills Start Date End Date ASPIRIN 81 MG OR TABS 1 tab po QD (Once per day) 100 3 12/08/2004 CALCIUM /VITAMIN D TABS 600-125 MG-IU OR one tablet BID cetirizine (ZYRTEC) 10 MG tablet Take 1 tablet by mouth daily. 90 tablet 3 11/03/2010 FISH OIL 1000 MG OR CAPS one tablet daily fluticasone (FLONASE) 50 MCG/ACT nasal spray [place] 1-2 sprays into both nostrils daily 3 Package 1 05/14/2014 fluticasone (FLOVENT HFA) 220 MCG/ACT inhaler Inhale 2 puffs into the lungs 2 times daily 3 Inhaler 3 05/14/2014 GLUCOSAMINE CHONDRO COMPLEX 500-400 MG OR TABS 1500mgGL/1200CH daily HYDROCHLOROTHIAZIDE PO Take 25 mg by mouth levothyroxine (SYNTHROID, LEVOTHROID) 150 MCG tablet Take 1 tablet by mouth daily. 90 tablet 3 11/03/2010 LISINOPRIL 2.5 MG OR TABS 1/2 tab qd MULTI-DAY PLUS IRON OR TABS potassium chloride (K-DUR) 10 MEQ tablet Take by mouth daily pravastatin (PRAVACHOL) 40 MG tablet Take 1 tablet by mouth daily. 90 tablet 3 11/03/2010 sertraline (ZOLOFT) 50 MG tabletIndications:PMDD (premenstrual dysphoric disorder) take one tablet by mouth daily 90 tablet 10/07/2017 VITAMIN D 400 UNIT OR TABS 0 03/19/2008 documented as of this encounter Plan of Treatment Not on file documented as of this encounter Procedures Procedure Name Priority Date/Time Associated Diagnosis Comments MA SCREENING BILATERAL W/ PORTER Routine 01/06/2024 10:28 AM CDT Visit for screening mammogram documented in this encounter Results * MA Screening Bilateral w/ Porter [...] Sissy Blair MD IMG MAMMOGRAPHY ORD ERABLES documented in this encounter Visit Diagnoses Diagnosis Visit for screening mammogram Other screening mammogram documented in this encounter Care Teams Crystal Flat Grinder Relationship Specialty Start Date End Date Garrett Lee MD PCP - General Family Practice 04/21/19 documented as of this encounter
--- OUTSIDE RECORDS SUMMARY | 2024-01-13 12:36 | XMS_ITS | Encounter Summary ---
Author Organization [facility] Address [address] [place] [address] Care Team Providers Care Interactive Developer Name Role Phone Garrett Lee MD Primary Care Provider [phone] Encounter Details Date Type Department Care Team (Latest Contact Info) Description 01/06/2024 Travel Social History Tobacco Use Types Packs/Day Years [...] on file documented as of this encounter Plan of Treatment Not on file documented as of this encounter Visit Diagnoses Not on filedocumented in this encounter Care Teams Interactive Developer Relationship Specialty Start Date End Date Garrett Lee MD PCP - General Family Practice 04/21/19 documented as of this encounter
--- OUTSIDE RECORDS SUMMARY | 2024-01-13 12:36 | XMS_ITS | Clinical Summary ---
Author Organization [employer] Address [address] [place] [address] Care Team Providers Care Route Jumper Name Role Phone Unavailable Primary Care Provider [...] for each transition of care or referral. [email or web address] Allergies Active Allergy Reactions Criticality Noted Date Comments Sulfa Antibiotics 04/13/2020 Eye drops Medications Medication Sig Dispensed Refills Start Date End Date Status fluticasone propionate (FLONASE) 50 MCG/ACT nasal solution Place 1 [place] into both nostrils two times a day. [...]
--- OUTSIDE RECORDS SUMMARY | 2024-01-13 12:36 | XMS_ITS | Encounter Summary ---
Author Organization [place] Address [address] [place] [address] Care Team Providers Care Senior Technical Trainer Name Role Phone Tania Moreno MD Primary Care Provider [phone] Jah Rock MD Primary Care Provider Garrett Madera MD Primary Care Provider [phone] Encounter Details Date Type Department Care Team (Late st Contact Info) Description 04/02/[address] [address] Jah Rock MD NO INFO [...] condition. [id number] JAH ROCK MD MT: Document: [id number] [place], [place] Name: LEIGH DUBOIS LCN: SDS DSC: 03/16/2003 [place], [place] Name: MR#: : Procedure Date: LEIGH DUBOIS -[id number] Doctor: JAH ROCK MD OPERATIVE REPORT Electronically filed by Elle Rosenbaum 04/18/2003 8:28 AM documented in this encounter Plan of Treatment Not on file documented as of this encounter Visit Diagnoses Diagnosis DIAGNOSIS NOT YET DEFINED- Primary documented in this encounter Care Teams Senior Technical Trainer Relationship Specialty Start Date End Date Tania Moreno MD [address] [place] [address] PCP - General 02/02/03 02/14/15 Jah Rock MD [address] [place] [address] PCP - General welder fitter arc 02/15/15 04/20/19 Garrett Lee MD [address] [place] [address] PCP - General Family Practice 04/21/19 documented as of this encounter
--- OUTSIDE RECORDS SUMMARY | 2024-01-13 12:36 | XMS_ITS | Encounter Summary ---
Author Organization [place] Address [address] [place] [address] Care Team Providers Care Wedding Designer Name Role Phone Juan Rock MD Primary Care Provider Garrett Madera MD Primary Care Provider [phone] Reason for Visit * Reason Comments Medication Refill zoloft Encounter Details Date Type Department Care Team (Late st Contact Info) Description 03/26/2017 Refill [facility] [address] [place] [phone] Juan Rock MD NO INFO AVAILABLE 02/16/23 [...] Notes * Telephone Encounter - Bailey Corcoran RN ([place]) - 03/26/2017 12:13 PM CDT Routing refill request to provider for review/approval because: diagnosis not listed on [facility] [place] for this medication Zoloft Last Written Prescription Date: 03/10/16 Last Fill Quantity: 90, # refills: 3 Last Office Visit with [facility] primary care provider: 09/23/16 Last PHQ-9 score on record= PHQ-9 SCORE 11/27/2011 Total Score 0 Electronically signed by [facility]enrostro at 03/26/2017 12:17 PM CDT documented in this encounter Plan of Treatment Not on file documented as of this encounter Visit Diagnoses Diagnosis PMDD (premenstrual dysphoric disorder) Premenstrual tension syndromes documented in this encounter Care Teams Wedding Designer Relationship Specialty Start Date End Date Juan Rock MD PCP - General instructional services librarian 02/15/15 04/20/19 Garrett Lee MD PCP - General Family Practice 04/21/19 documented as of this encounter
--- OUTSIDE RECORDS SUMMARY | 2024-01-13 12:37 | XMS_ITS | Clinical Summary ---
Author Organization [facility] Address [place], [place] [address] Care Team Providers Care Pressfitter Name Role Phone Pcp, No Primary Care [...] Comments Blood Pressure 122/70 09/11/2012 3:09 PM SPANISH MEDICAL INTERPRETER Pulse 88 09/11/2012 3:09 PM SPANISH MEDICAL INTERPRETER Temperature 37.6 ??C (99.6 ??F) 09/11/2012 3:09 PM CS T Respiratory Rate 16 09/11/2012 3:09 PM SPANISH MEDICAL INTERPRETER Oxygen Saturation 97% 09/11/2012 3:09 PM SPANISH MEDICAL INTERPRETER Inhaled Oxygen Concentration - - Weight 93.4 kg (206 lb) 06/13/2011 3:26 PM SPANISH MEDICAL INTERPRETER Height 157.5 cm (5' 2) 06/13/2011 3:26 PM SPANISH MEDICAL INTERPRETER Body Mass Index 37.68 06/13/2011 3:26 PM SPANISH MEDICAL INTERPRETER Plan of Treatment Health Maintenance Due Date [...] for age 65+ 03/26/2024 04/15/2009 Care Teams Pressfitter Relationship Specialty Start Date End Date Pcp, No . PCP - General 01/06/11
== END 2023-12-28 11:36 | disposition home or self-care (01) ==
LOC: NFLDREF 01-13 12:34
PROVIDERS: PCP Family Medicine; Referring Provider Family Medicine; Visit Provider Obstetrics & Gynecology
DX: R30.0 Dysuria (principal)
CPT/HCPCS: 87086

== ENCOUNTER 2024-02-04 10:24 | Outpatient (CLI) | payer MEDICARE, SELFPAY ==
--- OUTSIDE RECORDS SUMMARY | 2024-02-04 10:39 | XMS_ITS | Encounter Summary ---
Author Organization [place] Address [address] [place] [address] Care Team Providers Care Compound Specialist Name Role Phone Juan Rock MD Primary Care Provider Garrett Madera MD Primary Care Provider [phone] Reason for Visit * Reason Comments Medication Refill Encounter Details Date Type Department Care Team (Late st Contact Info) Description 06/18/2017 Refill [facility] [address] [place] [phone] Juan Rock MD NO INFO AVAILABLE 02/16/23 [...] Denia Henry RN - 06/18/2017 10:24 AM LANDING GEAR MECHANIC E request received for Zoloft. Last office visit 09/23/16. See last PHQ-9 score and advise. PHQ-9 score: PHQ-9 SCORE 11/27/2011 Total Score 0 Routing refill request to provider for review/approval because: PHQ-9 not current; last office visit more than 6 months ago ING GEAR MECHANIC documented in this encounter Plan of Treatment Upcoming Encounters Date Type Department Care Team (Late st Contact Info) Description 02/21/2024 7:30 AM CDT Hospital Encounter [facility] PeriOP Services [address] [place] [phone] Sissy Blair MD [facility] [address] [facility] [address] [place] [address] 02/21/2024 7:30 AM CDT - 02/21/2024 9:50 AM CDT Surgery [facility] [address] [place] [phone] Sissy Blair MD [facility] [address] [facility] [address] [place] [address] robotic assisted laparoscopic bilateral salpingo oophorectomy, Scheduled Procedures Name Priority Associated Diagnoses Date/Ti me HYSTERECTOMY, ROBOT-ASSISTED, USING DA NITIN XI, WITH SALPINGO-OOPHORECTOMY Malignant neoplasm of endometrium (H) 02/21/2024 7:30 AM CDT BIOPSY, LAPAROSCOPIC Malignant neoplasm of endometrium (H) 02/21/2024 7:30 AM CDT documented as of this encounter Visit Diagnoses Diagnosis PMDD (premenstrual dysphoric disorder) Premenstrual tension syndromes Malignant neoplasm of endometrium (H) Malignant neoplasm of corpus uteri, except isthmus documented in this encounter Care Teams Compound Specialist Relationship Specialty Start Date End Date Juan Rock MD PCP - General receiving supervisor 02/15/15 04/20/19 Garrett Lee MD PCP - General Family Practice 04/21/19 documented as of this encounter
--- OUTSIDE RECORDS SUMMARY | 2024-02-04 10:39 | XMS_ITS | Encounter Summary ---
Author Organization [place] Address [address] [place] [address] Care Team Providers Care Wheel And Caster Repairer Name Role Phone Garrett Lee MD Primary Care Provider [phone] Encounter Details Date Type Department Care Team (Latest Contact Info) Description 01/23/2024 Travel Social History Tobacco Use Types Packs/Day [...] as of this encounter Plan of Treatment Upcoming Encounters Date Type Department Care Team (Late st Contact Info) Description 02/21/2024 7:30 AM CDT Hospital Encounter [facility] PeriOP Services [address] [place] [phone] Sissy Blair MD [facility] [address] [facility] [address] [place] [address] 02/21/2024 7:30 AM CDT - 02/21/2024 9:[address] [facility] Peri[facility] Services [address] [place] [phone] Sissy Blair MD [facility] [address] [facility] [address] [place] [address] robotic assisted laparoscopic bilateral salpingo oophorectomy, Scheduled Procedures Name Priority Associated Diagnoses Date/Ti me HYSTERECTOMY, ROBOT-ASSISTED, USING DA NITIN XI, WITH SALPINGO-OOPHORECTOMY Malignant neoplasm of endometrium (H) 02/21/2024 7:30 AM CDT BIOPSY, LAPAROSCOPIC Malignant neoplasm of endometrium (H) 02/21/2024 7:30 AM CDT documented as of this encounter Visit Diagnoses Not on filedocumented in this encounter Care Teams Wheel And Caster Repairer Relationship Specialty Start Date End Date Garrett Lee MD PCP - General Family Practice 04/21/19 documented as of this encounter
--- OUTSIDE RECORDS SUMMARY | 2024-02-04 10:39 | XMS_ITS | Encounter Summary ---
Author Organization [place] Address [address] [place] [address] Care Team Providers Care Thread Inspector Name Role Phone Garrett Lee MD Primary Care Provider [phone] Encounter Details Date Type Department Care Team [...] 02/21/2024 7:30 AM CDT Hospital Encounter [facility] PeriOP Services [address] [place] [phone] Sissy Blair MD [facility] [address] [facility] [address] [place] [address] 02/21/2024 7:30 AM CDT - 02/21/2024 9:[address] [facility] Services [address] [place] [phone] Sissy Blair MD [facility] [address] [facility] [address] [place] [address] robotic assisted laparoscopic bilateral salpingo oophorectomy, Scheduled Procedures Name Priority Associated Diagnoses Date/Ti me HYSTERECTOMY, ROBOT-ASSISTED, USING DA NITIN XI, WITH SALPINGO-OOPHORECTOMY Malignant neoplasm of endometrium (H) 02/21/2024 7:30 AM CDT BIOPSY, LAPAROSCOPIC Malignant neoplasm of endometrium (H) 02/21/2024 7:30 AM CDT documented as of this encounter Visit Diagnoses Not on filedocumented in this encounter Care Teams Thread Inspector Relationship Specialty Start Date End Date Garrett Lee MD PCP - General Family Practice 04/21/19 documented as of this encounter
--- OUTSIDE RECORDS SUMMARY | 2024-02-04 10:39 | XMS_ITS | Clinical Summary ---
Author Organization [facility] Address [address] [place] [address] Care Team Providers Care Nuclear Chemistry Technician Name Role Phone Unavailable Primary Care Provider [...] for each transition of care or referral. [email or web address] Allergies Active Allergy Reactions Criticality Noted Date Comments Sulfa Antibiotics 04/13/2020 Eye drops Medications Medication Sig Dispensed Refills Start Date End Date Status fluticasone propionate (FLONASE) 50 MCG/ACT nasal solution Place 1 [place] into both nostrils two times a day. [...] (2 - PCV) 2021 06/10/2019 COVID-19 Vaccine (3 season) 2023 09/22/2020, 08/25/2020 Influenza (#1) 2024 05/07/2020, 04/25, 05/15/2018, Additional history exists HepA Aged Out [...]
--- OUTSIDE RECORDS SUMMARY | 2024-02-04 10:39 | XMS_ITS | Clinical Summary ---
Author Organization [facility] Address [address] [place] [address] Care Team Providers Care Saw Runner Name Role Phone Garrett Lee MD Primary Care Provider Allergies Active Allergy Reactions Criticality Noted Date Comments Cats 05/14/2014 Mold 05/14/2014 Sulfa Antibiotics 05/08/2011 EYE DROPS Medications Medication Sig Dispensed Refills Start Date End Date Status FISH OIL 1000 MG OR CAPS one tablet daily Active CALCIUM /VITAMIN D TABS 600-125 MG-IU OR one tablet BID Active MULTI-DAY PLUS IRON OR TABS Active ASPIRIN 81 MG OR TABS 1 tab po QD (Once per day) 100 3 12/08/2004 Active VITAMIN D 400 UNIT OR TABS [...] Active fluticasone (FLONASE) 50 MCG/ACT nasal spray [place] 1-2 sprays into both nostrils daily 3 Package 1 05/14/2014 Active HYDROCHLOROTHIAZIDE PO Take 25 mg by mouth Active potassium chloride (K-DUR) 10 MEQ tablet Take by mouth daily Active metFORMIN (GLUCOPHAGE-XR) 750 MG 24 hr tablet Take 750 mg by mouth daily (with dinner) Active tobramycin (TOBREX) 0.3 % ophthalmic solutionIndications: Conjunctivitis of right eye, unspecified conjunctivitis type Place 1-2 drops into the right eye 4 times daily 5 mL 01/23/2024 Active GLUCOSAMINE CHONDRO COMPLEX 500-400 MG OR TABS 1500mgGL/1200 CH daily 4 Discontinued LISINOPRIL 2.5 MG OR TABS 1/2 tab qd 4 Discontinued sertraline (ZOLOFT) 50 MG tabletIndications:PM DD (premenstrual dysphoric disorder) take one tablet by mouth daily 90 tablet 10/07/2017 4 Discontinued Active Problems Problem Noted Date Diagnosed Date [...] Encounters Date Type Department Care Team Description 01/23/2024 9:05 AM CDT Office Visit [facility] [address] [place] [address] Loren Miller PA-C Viral conjunctivitis of right eye (Primary Dx); Conjunctivitis of right eye, unspecified conjunctivitis type 01/23/2024 Travel 01/06/2024 10:05 AM CDT - 01/06/2024 11:59 PM CDT Hospital Encounter [facility] [address] [facility], [address] [place] [address] Doctor, None, Sissy Blunt MD [...] Sign Reading Time Taken Comments Blood Pressure 115/79 01/23/2024 9:08 AM CDT Pulse 73 01/23/2024 9:08 AM CDT Temperature 36.7 ??C (98.1 ??F) 01/23/2024 9:08 AM CD T Respiratory Rate 16 01/23/2024 9:08 AM CDT Oxygen Saturation 95% 01/23/2024 9:08 AM CDT Inhaled Oxygen Concentration - - Weight 93.5 kg (206 lb 1.6 oz) 01/23/2024 9:08 A M CDT Height 157.5 cm (5' 2) 01/13/2016 5:45 PM CDT Body Mass Index 37.7 01/13/2016 5:45 PM CDT Plan of Treatment Upcoming Encounters Date Type Department Care Team (Late st Contact Info) Description 02/21/2024 7:30 AM CDT Hospital Encounter [facility] Services [address] [place] [phone] Sissy Blair MD [facility] [address] [facility] [address] [facility] [place] [address] 02/21/2024 7:30 AM CDT - 02/21/2024 9:50 AM CDT Surgery [facility] Peri Services [address] [place] [phone] Sissy Blair MD [facility] [address] [facility] [address] [address] [facility] [place] [address] robotic assisted laparoscopic bilateral salpingo oophorectomy, Scheduled Procedures Name Priority Associated Diagnoses Date/Ti me HYSTERECTOMY, ROBOT-ASSISTED, USING DA NITIN XI, WITH SALPINGO-OOPHORECTOMY Malignant neoplasm of endometrium (H) 02/21/2024 7:30 AM CDT BIOPSY, LAPAROSCOPIC Malignant neoplasm of endometrium (H) 02/21/2024 7:30 AM CDT Health Maintenance Due Date Last Done Comments [...] (once per calendar year) 2023 INFLUENZA VACCINE (#1) 2024 3, 05/03/2022, 05/07/2021, Additional history exists MAMMO SCREENING 01/05/2026 01/06/2024, 050 10/2022, 10/06/2021, Additional history exists DTAP/TDAP/TD IMMUNIZATION [...] on patient's age to complete this topic Goals Goal Patient Goal Type Associated Problems Recent Progress Patient-Stated? Author MYC ECC SURG ENROLL Care Plan MyC ECC SURG ENROLL No Kathleen Panchal Procedures Procedure Name Priority Date/Time Associated Diagnosis Comments MA SCREENING BILATERAL W/ PORTER Routine 01/06/2024 10:28 AM CDT Visit for screening mammogram BASIC METABOLIC PANEL STAT 04/13/2020 5:02 PM CDT PAP IMAGED THIN LAYER SCREEN Routine 01/13/2016 12:00 AM CDT COLONOSCOPY Routine 06/22/2008 7:15 AM BURLAP ROLL COVERER HCL TSH Routine 01/12/2008 DIAGNOSIS NOT YET [...] 04/13/2020 5:21 PM CDT [facility] Potassium 3.7 3.4 - 5.3 mmol/L 04/13/2020 5:21 PM CDT [facility] Chloride 104 94 - 109 mmol/L 04/13/2020 5:21 PM T [facility] Carbon Dioxide 27 20 - 32 mmol/L 04/13/2020 5:[address] [facility] Anion Gap 7 3 - 14 mmol/L 04/13/2020 5:[address] [facility] Glucose 158(H) 70 - 99 mg/dL 04/13/2020 5:[address] [facility] Urea Nitrogen 15 7 - 30 mg/dL 04/13/2020 5:[address] [facility] Creatinine 0.82 0.52 - 1.04 mg/dL 04/13/2020 5:27 PM T [facility] GFR Estimate 76 >60 mL/min/{1. 73_m2} 04/13/2020 5:[address] [facility] Comment: Non GFR Calc Starting 07/12/2018, serum creatinine based estimated GFR (eGFR) will be calculated using the Chronic Kidney Disease Epidemiology Collaboration (CKD-EPI) equation. GFR Estimate If Black 89 >60 mL/min/{1. 73_m2} 04/13/2020 5:[address] [facility] Comment: GFR Calc Starting 07/12/2018, serum creatinine based estimated GFR (eGFR) will be calculated using the Chronic Kidney Disease Epidemiology Collaboration (CKD-EPI) equation. Calcium 9.2 8.5 - 10.1 mg/dL 04/13/2020 5:[address] [facility] Blood specimen (specimen) 04/13/2020 5:02 PM CDT 04/13/2020 5:10 PM CDT Ryann Huang MD LAB - BLOOD ORDERABL ES [facility] [address] [place] [address], [facility] [phone] [facility] [address] [place] [address], [facility] [phone] * PAP imaged thin layer, screen (01/13/2016 12:00 AM CDT) PAP NIL KENNYATH Copath Report Patient Name: LEIGH HARVEY MR#: [id number] Specimen #: [id number] Collected: 01/13/2016 Received: 01/15/2016 Reported: 01/16/2016 14:37 [...] ??(ASCP) Processed and screened at [facility] CLINICAL HISTORY: Ablation Post Menopausal, Previous normal pap Date of Last Pap: 05/14/14, Papanicolaou Test Limitations: ??Cervical cytology is a screening test with limited sensitivity; regular screening is critical for cancer prevention; Pap tests are primarily effective for the diagnosis/preventi on of squamous cell carcinoma, not adenocarcinomas or other cancers. TESTING LAB LOCATION: [address] ??[address] COLLECTION SITE: Client: ??[facility] Location: ROSARIO (R) BETSY Cytologic material (specimen) 01/13/2016 01/15/2016 12:45 PM CDT Jah Rock MD LAB - [facility] SPECIMEN COPATH * COLONOSCOPY (06/22/2008 7:15 AM BURLAP ROLL COVERER) COLONOSCOPY Endoscopy Patient Name: Leigh Harvey ? [...] oxygen ? saturations were monitored continuously. The [facility]-Q180AL ? #[id number] was introduced through the anus and advanced [...] COLONOSCOPY RADIOLOG Y RESULTS 06/22/2008 7:15 AM BURLAP ROLL COVERER Garrett Lee MD PROCEDURES RADIOLOGY RESULTS * TSH [[id number]] (01/12/2008) TSH 1.470@ mcU/mL MIS[facility] Provider Abstract LABORATORY Performing Organization Address [facility] Co de Phone Number MISYS * A.M.A. LIPID PANEL (01/23/2004 9:21 AM CDT) Cholesterol 194 <200 mg/dL [facility] Comment: Cholesterol Reference Range: <200 ??The NCEP recommends further ? evaluation of: ? 1. ??Patients with cholesterol ? greater than 200 mg/dL ? if additional risk factors ? are present. ? 2. ??All patients with a ? cholesterol greater than ? 240 mg/dL. Triglycerides 136 <150 mg/dL [facility] HDL Cholesterol 54 >40 mg/dL [facility] LDL Cholesterol Calculated 113 <130 mg/dL [facility] VLDL-Cholesterol 27 0 - 30 mg/dL [facility] Cholesterol/HDL Ratio 3.6 0.0 - 5.0 [facility] 01/23/2004 9:21 AM CDT 01/23/2004 9:26 AM CDT Tania Moreno MD LABORATORY Performing Organization Address City/[facility] Co de Phone Number [facility] from Last 3 Months or Most Recently Relevant to Health Maintenance Additional Health Concerns Active Problems Noted Date Diagnosed Date MyC ECC SURG ENROLL 01/28/2024 Care Teams Saw Runner Relationship Specialty Start Date End Date Garrett Lee MD PCP - General Family Practice 04/21/19
--- OUTSIDE RECORDS SUMMARY | 2024-02-04 10:39 | XMS_ITS | Encounter Summary ---
Author Organization [facility] Address [address] [place] [address]. [place] [address] Care Team Providers Care Housecleaner Floor Name Role Phone Garrett Lee MD Primary Care Provider [phone] Reason for Visit * Reason Comments Eye Problem 68 yo F presents wit h the following complaint left eye redness, hard to see out of eye, oozing onset T-1 Crusting as well Encounter Details Date Type Department Care Team (Latest Contact Info) Description 01/23/2024 9:05 AM CDT Office Visit [facility] [place] [facility] [place] [id number] [place] [phone] Loren Miller PA-C Viral conjunctivitis of right eye (Primary Dx); Conjunctivitis of right eye, unspecified conjunctivitis type Social History Tobacco Use Types Packs/Day Years [...] on file documented as of this encounter Last Filed Vital Signs Vital Sign Reading [...] oz) 01/23/2024 9:08 A M CDT Height - - Body Mass Index 37.7 01/13/2016 5:45 PM CDT documented in this encounter Patient Instructions * Patient Instructions* Loren Miller PA-C - 01/23/2024 9:05 AM CDT Viral conjunctivitis can be contiguous: don't touch your eyes with your hands, Wash your hands often.Use a clean towel and washcloth daily. Don't share towels or washcloths. Change your pillowcases often. You can use lubricant drops in eye for relief, such as Systane. If you develop a bacterial infection- green drainage persistent all day. Start antibiotic drops. * Attachments The following attachments cannot be sent through Care Everywhere. * Conjunctivitis (Greenlandic) documented in this encounter Progress Notes * Loren Miller PA-C - 01/23/2024 9:05 AM CDT Assessment & Plan: ICD-10-CM 1. Viral conjunctivitis of right eye B30.9 2. Conjunctivitis of right eye, unspecified conjunctivitis type H10.9 tobramycin (TOBREX) 0.3 % ophthalmic solution Plan/Clinical Decision Making: Patient presents with right eye discomfort with symptoms of mucus discharge a.m., mild sore throat,postnasal drip consist of viral conjunctivitis. Patient was instructed since this is a viral illness and self-limiting. Educated patient about viral conjunctivitis is contagious, encourage proper handwashing, use warm compression on the affected eye to help remove crust formation. Use lubricant drops in eye for relief, such as Systane. If symptoms persist or notice greenish-yellowish discharge onthe on the eye and tobramycin drop order was sent to pharmacy to use as needed. Patient Instructions Viral conjunctivitis can be contiguous: don't touch your eyes with your hands, Wash your hands often.Use a clean towel and washcloth daily. Don't share towels or washcloths. Change your pillowcases often. You can use lubricant drops in eye for relief, such as Systane. If you develop a bacterial infection- green drainage persistent all day. Start antibiotic drops. Return if symptoms worsen or fail to improve, for in 3-5 days. At the end of the encounter, I discussed results, diagnosis, medications. Discussed red flags for immediate return to clinic/ER, as well as indications for follow up if no improvement. Patient understood and agreed to plan. Patient was stable for discharge. GUZMAN VILLANUEVA-BIBI on 01/23/2024 at 9:14 AM Physician Attestation I, Loren Miller PA-C, was present with the medical/TESSA student who participated in the service and in the documentation of the note. I have verified the history and personally performed the physical exam and medical decision making. I agree with the assessment and plan of care as documented in t he note. Loren Miller PA-C Subjective: HPI: Leigh is a 68 year old female who presents to clinic today for the following health issues: Chief Complaint Patient presents with Eye Problem 68 yo F presents with the following complaint left eye redness, hard to see out of eye, oozing onset T-1 Crusting as well HPI Patient visited the urgent care for complaint of right eye redness noticed that started on . Mention she had cold symptoms, used zinc and vitamin C for symptom control, stated helped minimal. No recent contact of sick person in the house. Woke up this morning the right eye was blurry,noticed white mucosa around right eye. [place] like stuck on. Use warm compression and showered to brad ve the white discharge around her eye. Endorse symptoms of fatigue, eyes discharge, postnasal drip and mild sore throat. Denies fever, chills, nasal pressure, ear pain, loss of vision, nausea and vomiting. History of allergies takes medication for it. Review of Systems Constitutional: Positive for fatigue. Negative for appetite change, chills and fever. HENT: Positive for ear discharge, postnasal drip and sore throat. Negative for facial swelling, hearing loss, sinus pressure, sinus pain, tinnitus, trouble swallowing and voice change. Eyes: Positive for discharge and redness. Negative for photophobia, itching and visual disturbance. Respiratory: Positive for cough. Negative for chest tightness, shortness of breath and wheezing. Patient Active Problem List Diagnosis Acquired hypothyroidism Hyperlipidemia Essential hypertension, benign Family history of malignant neoplasm of breast HYPERLIPIDEMIA LDL GOAL <160 Pelvic relaxation Past Medical History: Diagnosis Date Essential hypertension, benign Mild -- Unspecified hypothyroidism Social History Tobacco Use Smoking status: Never Smokeless tobacco: Never Substance Use Topics Alcohol use: No Objective: Vitals: 01/23/24 0908 BP: 115/79 Pulse: 73 Resp: 16 Temp: 98.1 ??F (36.7 ??C) SpO2: 95% Weight: 93.5 kg (206 lb 1.6 oz) Physical Exam GENERAL: alert and no distress EYES: Eyes grossly normal to inspection and conjunctivae and sclerae normal HENT: ear canals and TM's normal, nose and mouth without ulcers or lesions NECK: no adenopathy, no asymmetry, masses, or scars RESP: lungs clear to auscultation - no rales, rhonchi or wheezes CV: regular rate and rhythm, normal S1 S2, no S3 or S4, no murmur, click or rub, no peripheral edema ABDOMEN: soft, nontender, no hepatosplenomegaly, no masses and bowel sounds normal MS: no gross musculoskeletal defects noted, no edema Results: No results found for any visits on 01/23/24. documented in this encounter Plan of Treatment Upcoming Encounters Date Type Department Care Team (Late st Contact Info) Description 02/21/2024 7:30 AM CDT Hospital Encounter [facility] Peri Services [address] [place] [phone] Sissy Blair MD [facility] [address] [facility] [address] [place], [place] [phone] 02/21/2024 7:30 AM CDT - 02/21/2024 9:50 AM CDT Surgery [facility] [address] [place] [phone] Sissy Blair MD [facility] [address] [facility] [address] [place] [address] robotic assisted laparoscopic bilateral salpingo oophorectomy, Scheduled Procedures Name Priority Associated Diagnoses Date/Ti me HYSTERECTOMY, ROBOT-ASSISTED, USING DA NITIN XI, WITH SALPINGO-OOPHORECTOMY Malignant neoplasm of endometrium (H) 02/21/2024 7:30 AM CDT BIOPSY, LAPAROSCOPIC Malignant neoplasm of endometrium (H) 02/21/2024 7:30 AM CDT documented as of this encounter Visit Diagnoses Diagnosis Viral conjunctivitis of right eye- Primary Conjunctivitis of right eye, unspecified conjunctivitis type Malignant neoplasm of endometrium (H) Malignant neoplasm of corpus uteri, except isthmus documented in this encounter Care Teams Housecleaner Floor Relationship Specialty Start Date End Date Garrett Lee MD PCP - General Family Practice 04/21/19 documented as of this encounter
--- OUTSIDE RECORDS SUMMARY | 2024-02-04 10:39 | XMS_ITS | Encounter Summary ---
Author Organization [facility] Address [address] [place] [address] Care Team Providers Care Aws Consultant Name Role Phone Tania Moreno MD Primary Care Provider [phone] Jah Rock MD Primary Care Provider Garrett Madera MD Primary Care Provider [phone] Encounter Details Date Type Department Care Team (Late st Contact Info) Description 04/02/[address] [address] Jah Rock MD NO INFO [...] condition. [id number] JAH ROCK MD MT: Document: [id number] [place], [place] Name: LEIGH DUBOIS LCN: SDS DSC: 03/16/2003 [place], [place] Name: MR#: : Procedure Date: LEIGH DUBOIS -[id number] Doctor: JAH ROCK MD OPERATIVE REPORT Electronically filed by Elle Rosenbaum 04/18/2003 8:28 AM documented in this encounter Plan of Treatment Upcoming Encounters Date Type Department Care Team (Late st Contact Info) Description 02/21/2024 7:30 AM CDT Hospital Encounter [facility] [address] [place] [address] Sissy Blair MD [facility] [id number] [place] [address] 02/21/2024 7:30 AM CDT - 02/21/2024 9:50 AM CDT Surgery [facility] [address] [place] [address] Sissy Blair MD [facility] [address] [address] robotic assisted laparoscopic bilateral salpingo oophorectomy, Scheduled Procedures Name Priority Associated Diagnoses Date/Ti me HYSTERECTOMY, ROBOT-ASSISTED, USING DA NITIN XI, WITH SALPINGO-OOPHORECTOMY Malignant neoplasm of endometrium (H) 02/21/2024 7:30 AM CDT BIOPSY, LAPAROSCOPIC Malignant neoplasm of endometrium (H) 02/21/2024 7:30 AM CDT documented as of this encounter Visit Diagnoses Diagnosis DIAGNOSIS NOT YET DEFINED- Primary Malignant neoplasm of endometrium (H) Malignant neoplasm of corpus uteri, except isthmus documented in this encounter Care Teams Aws Consultant Relationship Specialty Start Date End Date Tania Moreno MD [address] [place] [address] PCP - General 02/02/03 02/14/15 Jah Rock MD [address] [place] [address] PCP - General [place] 02/15/15 04/20/19 Garrett Lee MD [address] [place] [address] PCP - General Family Practice 04/21/19 documented as of this encounter
--- OUTSIDE RECORDS SUMMARY | 2024-02-04 10:39 | XMS_ITS | Encounter Summary ---
Author Organization [facility] Address [address] [place] [address] Care Team Providers Care Administrative Assistant Front Desk Name Role Phone Juan Rock MD Primary Care Provider Garrett Madera MD Primary Care Provider [phone] Reason for Visit * Reason Comments Medication Refill zoloft Encounter Details Date Type Department Care Team (Late st Contact Info) Description 03/26/2017 Refill [facility] Women's [address] [place] [phone] Juan Rock MD NO INFO AVAILABLE 02/16/23 [...] for review/approval because: diagnosis not listed on [facility] protocol for this medication Zoloft Last Written Prescription Date: 03/10/16 Last Fill Quantity: 90, # refills: 3 Last Office Visit with [facility] primary care provider: 09/23/16 Last PHQ-9 score on record= PHQ-9 SCORE 11/27/2011 Total Score 0 documented in this encounter Plan of Treatment Upcoming Encounters Date Type Department Care Team (Late st Contact Info) Description 02/21/2024 7:30 AM CDT Hospital Encounter [facility] Services [address] [place] [phone] Sissy Blair MD [facility] [address] [address] 02/21/2024 7:30 AM CDT - 02/21/2024 9:50 AM CDT Surgery [facility] [address] [place] [address] Sissy Blair MD [facility] [address] [address] robotic assisted laparoscopic bilateral salpingo oophorectomy, Scheduled [...] isthmus documented in this encounter Care Teams Administrative Assistant Front Desk Relationship Specialty Start Date End Date Juan Rock MD PCP - General butt sawyer 02/15/15 04/20/19 Garrett Lee MD PCP - General Family Practice 04/21/19 documented as of this encounter
--- OUTSIDE RECORDS SUMMARY | 2024-02-04 10:39 | XMS_ITS | Referral Summary ---
Author Organization [facility] Address [address] [place] [address]. [place] [address] Care Team Providers Care Supervisor Record Press Name Role Phone Garrett Lee MD Primary Care Provider [phone] Encounters Date Type Department Care Team Description 01/23/2024 Travel 01/23/2024 9:05 AM CDT Office Visit [facility] [place] [address] [place] [phone] Loren Miller, DAYSI Viral conjunctivitis of right eye (Primary Dx); Conjunctivitis of right eye, unspecified conjunctivitis type 01/06/2024 Travel 01/06/2024 10:05 AM CDT - 01/06/2024 11:59 PM CDT Hospital Encounter [facility] [address] [facility], [address] [place] [address] Doctor, None, Sissy Blunt MD [...] Active fluticasone (FLONASE) 50 MCG/ACT nasal spray [place] 1-2 sprays into both nostrils daily 3 [...] Description 02/21/2024 7:30 AM CDT Hospital Encounter [facility] PeriOP Services [address] [place] [phone] Sissy Blair MD [facility] [address] [facility] [address] [place], [place] [address] 02/21/2024 7:30 AM CDT - 02/21/2024 9:50 AM CDT Surgery [facility] [address] [place] [phone] Sissy Blair MD [facility] [address] [facility] [address] [place] [address] robotic assisted laparoscopic bilateral salpingo oophorectomy, Scheduled Procedures Name Priority Associated Diagnoses Date/Ti me HYSTERECTOMY, ROBOT-ASSISTED, USING DA NITIN XI, WITH SALPINGO-OOPHORECTOMY Malignant neoplasm of endometrium (H) 02/21/2024 7:30 AM CDT BIOPSY, LAPAROSCOPIC Malignant neoplasm of endometrium (H) 02/21/2024 7:30 AM CDT Goals Goal Patient Goal Type Associated Problems [...] AM CDT COLONOSCOPY Routine 06/22/2008 7:15 AM EXPEDITER HCL TSH Routine 01/12/2008 DIAGNOSIS NOT YET [...] - 144 mmol/L 04/13/2020 5:21 PM CDT [facility] Potassium 3.7 3.4 - 5.3 mmol/L 04/13/2020 5:21 PM [facility] Chloride 104 94 - 109 mmol/L 04/13/2020 5:21 PM [facility] Carbon Dioxide 27 20 - 32 mmol/L 04/13/2020 5:27 PM T [facility] Anion Gap 7 3 - 14 mmol/L 04/13/2020 5:27 PM [facility] Glucose 158(H) 70 - 99 mg/dL 04/13/2020 5:27 PM [facility] Urea Nitrogen 15 7 - 30 mg/dL 04/13/2020 5:27 PM [facility] Creatinine 0.82 0.52 - 1.04 mg/dL 04/13/2020 5:27 PM [facility] GFR Estimate 76 >60 mL/min/{1. 73_m2} 04/13/2020 5:27 PM [facility] Comment: Non GFR Calc Starting 07/12/2018, serum creatinine based estimated GFR (eGFR) will be calculated using the Chronic Kidney Disease Epidemiology Collaboration (CKD-EPI) equation. GFR Estimate If Black 89 >60 mL/min/{1. 73_m2} 04/13/2020 5:27 PM [facility] Comment: GFR Calc Starting 07/12/2018, serum creatinine based estimated GFR (eGFR) will be calculated using the Chronic Kidney Disease Epidemiology Collaboration (CKD-EPI) equation. Calcium 9.2 8.5 - 10.1 mg/dL 04/13/2020 5:27 PM CDT [facility] Blood specimen (specimen) 04/13/2020 5:02 PM CDT 04/13/2020 5:10 PM CDT Ryann Huang MD LAB - BLOOD ORDERABL ES [facility] [address] [place] [address], [facility] [phone] [facility] [address] [place] [address], [facility] [phone] * PAP imaged thin layer, screen (01/13/2016 12:00 AM CDT) PAP NIL COPATH Copath Report Patient Name: LEIGH HARVEY MR#: [id number] Specimen #: [id number] Collected: 01/13/2016 Received: 01/15/2016 Reported: 01/16/2016 14:37 [...] CHANDLER Julien ??(ASCP) Processed and screened at [facility], [facility] CLINICAL HISTORY: Ablation Post Menopausal, Previous normal pap Date of Last Pap: 05/14/14, Papanicolaou Test Limitations: ??Cervical cytology is a screening test with limited sensitivity; regular screening is critical for cancer prevention; Pap tests are primarily effective for the diagnosis/preventi on of squamous cell carcinoma, not adenocarcinomas or other cancers. TESTING LAB LOCATION: [facility] [address] [place], [place] ??[address] COLLECTION SITE: Client: ??[facility] Location: [facility] (R) [facility] Cytologic material (specimen) 01/13/2016 01/15/2016 12:45 PM CDT Jah Rock MD LAB - [facility] SPECIMEN COPATH * COLONOSCOPY (06/22/2008 7:15 AM EXPEDITER) COLONOSCOPY Endoscopy Patient Name: Leigh Harvey ? [...] saturations were monitored continuously. The [id number] ? #[id number] was introduced through the anus and advanced [...] COLONOSCOPY RADIOLOG Y RESULTS 06/22/2008 7:15 AM EXPEDITER Garrett Lee MD PROCEDURES RADIOLOGY RESULTS * TSH [[id number]] (01/12/2008) TSH 1.470@ mcU/mL MISYS Provider Abstract LABORATORY Performing Organization Address City/[facility]/ZIP Co de Phone Number MISYS * A.M.A. LIPID PANEL (01/23/2004 9:21 AM CDT) Cholesterol 194 <200 mg/dL [facility] Comment: Cholesterol Reference Range: <200 ??The NCEP recommends further ? evaluation of: ? 1. ??Patients with cholesterol ? greater than 200 mg/dL ? if additional risk factors ? are present. ? 2. ??All patients with a ? cholesterol greater than ? 240 mg/dL. Triglycerides 136 <150 mg/dL [facility] HDL Cholesterol 54 >40 mg/dL [facility] LDL Cholesterol Calculated 113 <130 mg/dL [facility] VLDL-Cholesterol 27 0 - 30 mg/dL [facility] Cholesterol/HDL Ratio 3.6 0.0 - 5.0 [facility] 01/23/2004 9:21 AM CDT 01/23/2004 9:26 AM CDT Tania Moreno MD LABORATORY [facility] from Last 3 Months or Most Recently Relevant to Health Maintenance Additional Health Concerns Active Problems Noted Date Diagnosed Date MyC ECC SURG ENROLL 01/28/2024 Care Teams Supervisor Record Press Relationship Specialty Start Date End Date Garrett Lee MD PCP - General Family Practice 04/21/19
--- OUTSIDE RECORDS SUMMARY | 2024-02-04 10:39 | XMS_ITS | Encounter Summary ---
Author Organization [facility] Address [address] [place] [address] Care Team Providers Care Hog Grader Name Role Phone Garrett Lee MD Primary Care Provider [phone] Reason for Referral * Diagnostic Imaging Mammo (Routine) - Pending Review Specialty Diagnoses / Procedures Referred By Shannan grayson Referred To Contact Radiology. Diagnoses Visit for screening mammogram Procedures MA Screening Bilateral w/ Porter MA Screen Bilateral w/Porter Sissy Blair MD [facility] [address] [address] Referral ID Status Reason Start Date Expiration Date V isits Requested Visits Authorized [id number] Pending Review 01/05/2024 01/04/2025 1 1 Reason for Visit * Diagnostic Imaging Mammo (Routine) - Pending Review Specialty Diagnoses / Procedures Referred By Shannan grayson Referred To Contact Radiology. Diagnoses Visit for screening mammogram Procedures MA Screening Bilateral w/ Porter MA Screen Bilateral w/Porter Sissy Blair MD [facility] [address] [address] Referral ID Status Reason Start Date Expiration Date V isits Requested Visits Authorized [id number] Pending Review 01/05/2024 01/04/2025 1 1 Encounter Details Date Type Department Care Team (Late st Contact Info) Description 01/06/2024 10:05 AM CDT - 01/06/2024 11:59 PM CDT Hospital Encounter [facility] [address] [facility] [place] [address] Doctor, None, Sissy Blunt MD [facility] [address] [facility] [address] [place] [address] Visit for screening mammogram Discharge Disposition: Home [...] daily fluticasone (FLONASE) 50 MCG/ACT nasal spray [place] 1-2 sprays into both nostrils daily 3 Package 1 05/14/2014 fluticasone (FLOVENT HFA) 220 MCG/ACT inhaler Inhale 2 puffs into the lungs 2 times daily 3 Inhaler 3 05/14/2014 HYDROCHLOROTHIAZIDE PO Take 25 mg by mouth levothyroxine (SYNTHROID, LEVOTHROID) 150 MCG tablet Take 1 tablet by mouth daily. 90 tablet 3 11/03/2010 MULTI-DAY PLUS IRON OR TABS potassium chloride (K-DUR) 10 MEQ tablet Take by mouth daily pravastatin (PRAVACHOL) 40 MG tablet Take 1 tablet by mouth daily. 90 tablet 3 11/03/2010 VITAMIN D 400 UNIT OR TABS 0 03/19/2008 GLUCOSAMINE CHONDRO COMPLEX 500-400 MG OR TABS 1500mgGL/1200CH daily 01/23/2024 LISINOPRIL 2.5 MG OR TABS 1/2 tab qd 01/23/2024 sertraline (ZOLOFT) 50 MG tabletIndications:PMDD (premenstrual dysphoric disorder) take one tablet by mouth daily 90 tablet 10/07/2017 01/23/2024 documented as of this encounter Plan of Treatment Upcoming Encounters Date Type Department Care Team (Late st Contact Info) Description 02/21/2024 7:30 AM CDT Hospital Encounter [facility] Services [address] [place] [address] Sissy Blair MD [facility] [address] [place] [address] 02/21/2024 7:30 AM CDT - 02/21/2024 9:50 AM CDT Surgery [facility] [address] [place] [address] Sissy Blair MD [facility] [address] [address] robotic assisted laparoscopic bilateral salpingo oophorectomy, Scheduled Procedures Name Priority Associated Diagnoses Date/Ti me HYSTERECTOMY, ROBOT-ASSISTED, USING DA NITIN XI, WITH SALPINGO-OOPHORECTOMY Malignant neoplasm of endometrium (H) 02/21/2024 7:30 AM CDT BIOPSY, LAPAROSCOPIC Malignant neoplasm of endometrium (H) 02/21/2024 7:30 AM CDT documented as of this encounter Procedures Procedure [...] Visit for screening mammogram Other screening mammogram Malignant neoplasm of endometrium (H) Malignant neoplasm of corpus uteri, except isthmus documented in this encounter Care Teams Hog Grader Relationship Specialty Start Date End Date Garrett Lee MD PCP - General Family Practice 04/21/19 documented as of this encounter
--- OUTSIDE RECORDS SUMMARY | 2024-02-04 10:40 | XMS_ITS | Clinical Summary ---
Author Organization [facility] Address [place], [place] [address] Care Team Providers Care Body Mechanic Name Role Phone Pcp, No Primary Care [...] Comments Blood Pressure 122/70 09/11/2012 3:09 PM LEGAL BILLING CLERK Pulse 88 09/11/2012 3:09 PM LEGAL BILLING CLERK Temperature 37.6 ??C (99.6 ??F) 09/11/2012 3:09 PM CS T Respiratory Rate 16 09/11/2012 3:09 PM LEGAL BILLING CLERK Oxygen Saturation 97% 09/11/2012 3:09 PM LEGAL BILLING CLERK Inhaled Oxygen Concentration - - Weight 93.4 kg (206 lb) 06/13/2011 3:26 PM LEGAL BILLING CLERK Height 157.5 cm (5' 2) 06/13/2011 3:26 PM LEGAL BILLING CLERK Body Mass Index 37.68 06/13/2011 3:26 PM LEGAL BILLING CLERK Plan of Treatment Health Maintenance Due Date [...] for age 65+ 03/26/2024 04/15/2009 Care Teams Body Mechanic Relationship Specialty Start Date End Date Pcp, No . PCP - General 01/06/11
== END 2024-02-04 10:25 | disposition home or self-care (01) ==
PROVIDERS: PCP Family Medicine; Visit Provider Family Medicine
DX: Z01.818 Encounter for other preprocedural examination (principal)
CPT/HCPCS: 80048

== ENCOUNTER 2024-06-19 08:29 | Outpatient (CLI) | payer MEDICARE, SELFPAY ==
--- OUTSIDE RECORDS SUMMARY | 2024-06-19 08:36 | XMS_ITS | Encounter Summary ---
Author Organization [place] Address [address] [place] [address] Care Team Providers Care Music Rehabilitation Therapist Name Role Phone Juan Rock MD Primary Care Provider Garrett Madera MD Primary Care Provider [phone] Reason for Visit * Reason Comments Medication Refill zoloft Encounter Details Date Type Department Care Team (Late st Contact Info) Description 03/26/2017 Refill [facility] [address] [place] [phone] Juan Rock MD NO INFO AVAILABLE 02/16/23 Medication Refill (zoloft ) Social History Tobacco Use Types Packs/Day Years Used Date Smoking Tobacco: Never Smokeless Tobacco: Never Alcohol Use Standard Drinks/Week Comments No 0 (1 standard drink = 0.6 oz pur e alcohol) Comments No Sex and Gender Information Value Date Recorded Sex Assigned at Not on file Legal Sex Female 3:12 AM BIOINFORMATICS ASSISTANT Gender Identity Not on file Sexual Orientation Not on file documented as of this encounter Miscellaneous Notes * Telephone Encounter - Bailey Corcoran RN ([place]) - 03/26/2017 12:13 PM CDT Routing refill request to provider for review/approval because: diagnosis not listed on [facility] protocol for this medication Zoloft Last Written Prescription Date: 03/10/16 Last Fill Quantity: 90, # refills: 3 Last Office Visit with [facility] primary care provider: 09/23/16 Last PHQ-9 score on record= PHQ-9 SCORE 11/27/2011 Total Score 0 documented in this encounter Plan of Treatment Not on file documented as of this encounter Visit Diagnoses Diagnosis PMDD (premenstrual dysphoric disorder) Premenstrual tension syndromes documented in this encounter Care Teams Music Rehabilitation Therapist Relationship Specialty Start Date End Date Juan Rock MD PCP - General panel beater 02/15/15 04/20/19 Garrett Lee MD PCP - General Family Practice 04/21/19 documented as of this encounter
--- OUTSIDE RECORDS SUMMARY | 2024-06-19 08:36 | XMS_ITS | Encounter Summary ---
Author Organization [place] Address [address] [place] [address] Care Team Providers Care Intelligence Director Name Role Phone Tania Moreno MD Primary Care Provider [phone] Jah Rock MD Primary Care Provider Marthav Garrett Gore MD Primary Care Provider [phone] Encounter Details Date Type Department Care Team (Late st Contact Info) Description 04/02/[address] [phone] Jah Rock MD NO INFO [...] on file Legal Sex Female 3:12 AM CAR FERRIER Gender Identity Not on file Sexual Orientation [...] cervix was grasped with a single-tooth tenaculum. Thoroug h endocervical curetting was performed and the [...] condition. [id number] JAH ROCK MD MT: Document: [id number] [place], [place] Name: LEIGH DUBOIS LCN: SDS DSC: 03/16/2003 [place], [place] Name: MR#: : Procedure Date: LEIGH DUBOIS -26 1955 Doctor: JAH ROCK MD OPERATIVE REPORT Electronically filed by Elle Rosenbaum 04/18/2003 8:28 AM documented in this encounter Plan of Treatment Not on file documented as of this encounter Visit Diagnoses Diagnosis DIAGNOSIS NOT YET DEFINED- Primary documented in this encounter Care Teams Intelligence Director Relationship Specialty Start Date End Date Tania Moreno MD [address] [place] [address] PCP - General 02/02/03 02/14/15 Jah Rock MD [address] [place] [address] PCP - General high school science tutor 02/15/15 04/20/19 Garrett Lee MD [address] [place] [id number] PCP - General Family Practice 04/21/19 documented as of this encounter
--- OUTSIDE RECORDS SUMMARY | 2024-06-19 08:36 | XMS_ITS | Clinical Summary ---
Author Organization [place] Address [address] [place] [address] Care Team Providers Care Property Site Manager Name Role Phone Garrett Lee MD Primary Care Provider [phone] Allergies Active Allergy Reactions Criticality Noted Date Comments Cat Hair Extract Low 12/13/2023 Asthma Molds & Smuts High 12/13/2023 Sulfa Antibiotics 05/08/2011 EYE DROPS Sulfacetamide 02/15/2024 Burning and redness in eyese Medications FISH OIL 1000 MG OR CAPS one tablet daily Act darcy CALCIUM /VITAMIN D TABS 600-125 MG-IU OR one tablet BID Activ e ASPIRIN 81 MG OR TABS Take 81 mg by mouth every other day 100 3 12/09/19 05 Active Cholecalciferol (VITAMIN D) 50 MCG (1999 UT) CAPS Take 1 tablet by mouth daily 0 03/19/20 08 Active levothyroxine (SYNTHROID, LEVOTHROID) 150 MCG tablet Take 1 tablet by mouth daily. 90 tablet 3 11/04/19 11 Active pravastatin (PRAVACHOL) 40 MG tablet Take 1 tablet by mouth daily. 90 tablet 3 11/04/19 11 Active cetirizine (ZYRTEC) 10 MG tablet Take 1 tablet by mouth daily. 90 tablet 3 11/04/19 11 Active fluticasone (FLOVENT HFA) 220 MCG/ACT inhaler Inhale 2 puffs into the lungs 2 times daily 3 Inhaler 3 05/14/20 14 Active fluticasone (FLONASE) 50 MCG/ACT nasal spray [place] 1-2 sprays into both nostrils daily 3 Package 1 05/14/20 14 Active hydrochlorothiazid e (HYDRODIURIL) 25 MG tablet Take 25 mg by mouth daily Active potassium chloride (K-DUR) 10 MEQ tablet Take 10 mEq by mouth daily Active metFORMIN (GLUCOPHAGE-XR) 750 MG 24 hr tablet Take 1,500 mg by mouth daily (0v321nm=1442hf) Active tobramycin (TOBREX) 0.3 % ophthalmic solutionIndication s:Conjunctivitis of right eye, unspecified conjunctivitis type Place 1-2 drops into the right eye 4 times daily 5 mL 01/23/20 24 Active albuterol (PROAIR HFA/PROVENTIL HFA/VENTOLIN HFA) 108 (90 Base) MCG/ACT inhaler Inhale 2 puffs into the lungs every 6 hours as needed for shortness of breath, wheezing or cough Active APPLE CIDER VINEGAR PO Active BERBERINE CHLORIDE PO Take 1,200 mg by mouth daily Active UNABLE TO FIND Take 1 tablet by mouth daily Calcium Magnesium plus D (Calcium carb-mag oxide-vit D3) 400-167-133 mg-mg-unit Active docusate sodium (COLACE) 100 MG capsule Take 100 mg by mouth 2 times daily Active coenzyme Q-10 10 MG CAPS Take 100 mg by mouth daily Active ibuprofen (ADVIL/MOTRIN) 600 MG tablet Take 600 mg by mouth every 6 hours as needed for moderate pain Active multivitamin w/minerals (MULTI-VITAMIN) tablet Take 1 tablet by mouth daily Active vitamin C (ASCORBIC ACID) 1000 MG TABS Take 1,000 mg by mouth daily Active Calcium-Magnesium- Zinc (TUY-TWJ-KTNH OR) Take 1 tablet by mouth daily (1000mg/400mg/25 mg) Active CINNAMON PO Take 1,200 mg by mouth daily Active oxyCODONE (ROXICODONE) 5 MG tabletIndications: Endometrial cancer (H) Take 1-2 tablets (5-10 mg) by mouth every 4 hours as needed for moderate to severe pain 12 tablet 02/21/20 24 Active senna-docusate (SENOKOT-S/PERICOL YOJANA) 8.6-50 MG tabletIndications: Endometrial cancer (H) Take 1-2 tablets by mouth 2 times daily as needed for constipation (While on oral opioids.) 30 tablet 02/21/20 24 Active Active Problems Problem Noted Date Diagnosed Date Endometrial cancer 02/21/2024 Pelvic relaxation 10/05/2016 HYPERLIPIDEMIA LDL GOAL <160 05/25/2010 Family history of malignant neoplasm of breast 0 02/14/2007 Acquired hypothyroidism 08/22/2002 Overview (04/25/2015): Problem list name updated by automated process. Provider to review Hyperlipidemia 08/22/2002 Overview (04/25/2015): Problem list name updated by automated process. [...] School Help Needed Not on file 05/02 Comments No Sex and Gender Information Value Date Recorded Sex Assigned at Not on file Legal Sex Female 3:12 AM PHOTOGRAPHIC PROCESSOR Gender Identity Not on file Sexual Orientation Not on file Last Filed Vital Signs Vital Sign Reading Time Taken Comments Blood Pressure 132/64 02/21/2024 11:05 AM CDT Pulse 60 02/21/2024 11:05 AM CDT Temperature 36.7 C (98 F) 02/21/2024 11:05 AM CDT Respiratory Rate 16 02/21/2024 11:05 AM CDT Oxygen Saturation 93% 02/21/2024 11:05 AM CDT Inhaled Oxygen Concentration - - Weight 94.9 kg (209 lb 3.2 oz) 02/21/2024 6:09 A M CDT Height 154.9 cm (5' 1) 02/21/2024 6:09 AM CDT Body Mass Index 39.53 02/21/2024 6:09 AM CDT Plan of Treatment Health Maintenance Due Date Last Done Comments ADVANCE CARE PLANNING 1955 ANNUAL REVIEW OF HM ORDERS 1955 CT COLONOGRAPHY 1955 DEXA 1955 FIT 1955 FLEX SIG 1955 MICROALBUMIN 1955 sDNA (Cologuard) 1955 HEPATITIS C SCREENING 1974 LIPID 01/22/2005 01/23/2004, 08/19/2002 TSH W/FREE T4 REFLEX 01/11/2009 01/12/2008, 01/23/2004, 08/19/2002 RSV VACCINE (1 - Risk 60-74 years 1-dose series) 2016 COLONOSCOPY 06/22/2018 06/22/2008 COLORECTAL CANCER SCREENING 06/22/2018 BMP 04/13/2021 04/13/2020, 05/0 12/2004, 01/23/2004, Additional history exists FALL RISK ASSESSMENT 2021 MEDICARE ANNUAL WELLNESS VISIT 2021 01/13/2016, 05/14/2014, 05/30/2012, Additional history exists PHQ-2 (once per calendar year) 2023 COVID-19 Vaccine ( season) 2024 08/14/2022, 05/31/2021, 09/22/2020, Additional history exists INFLUENZA VACCINE (#1) 2024 , 05/03/2022, 05/07/2021, Additional history exists MAMMO SCREENING 01/05/2026 01/06/2024, 05/0 10/2022, 10/06/2021, Additional history exists GLUCOSE 02/20/2027 02/21/2024, 01/24, 04/13/2020, Additional history exists DTAP/TDAP/TD IMMUNIZATION (3 - [...] Procedure Name Priority Date/Time Associated Diagnosis Comments GLUCOSE STAT 02/21/2024 6:28 AM CDT MA SCREENING BILATERAL W/ PORTER Routine 01/06/2024 10:28 AM CDT Visit for screening mammogram BASIC METABOLIC PANEL STAT 04/13/2020 5:02 PM CDT PAP IMAGED THIN LAYER SCREEN Routine 01/13/2016 12:00 AM CDT COLONOSCOPY Routine 06/22/2008 7:15 AM PHOTOGRAPHIC PROCESSOR HCL TSH Routine 01/12/2008 DIAGNOSIS NOT YET DEFINED CL AFF A.M.A. LIPID PANEL Routine 01/23/2004 9:21 AM CDT Hyperlipidemia Nec/Nos Benign Hypertension from Last 3 Months or Most Recently Relevant to Health Maintenance Results * (ABNORMAL) Glucose - Pre-Op (02/21/2024 6:28 AM CDT) Glucose 144(H) 70 - 99 mg/dL 02/21/2024 7:11 AM CDT LABORATORY Patient Fasting > 8hrs? Yes 02/21/2024 7:11 AM CDT LABORATORY Blood STRUCTURE OF LEFT UPPER LIMB / Unknown Venipuncture / Unknown 02/21/2024 6:28 AM CDT 02/21/2024 6:43 AM CDT us Rios Young MD LAB - BLOOD ORDERABLES Fi nal Result LABORATORY [facility] [address], [address] [place] [address], [facility] [phone] * [place] Screening Bilateral w/ Porter (01/06/2024 [...] Compared to: 11/26/2022, 10/06/2021, and 06/03/2020 Technique: This study was evaluated with the assistance of Computer-Aided Detection. Breast Tomosynthesis was used in interpretation. Findings: The breasts have scattered areas of fibroglandular density. There is no radiographic evidence of malignancy. us Sissy Blair MD IMG MAMMOGRAPHY ORDERABLES Final Result * (ABNORMAL) Basic metabolic panel (04/13/2020 5:02 PM CDT) Sodium 138 133 - 144 mmol/L 04/13/2020 5:21 PM CDT [facility] Potassium 3.7 3.4 - 5.3 mmol/L 04/13/2020 5:21 PM CDT [facility] Chloride 104 94 - 109 mmol/L 04/13/2020 5:21 PM CDT [facility] Carbon Dioxide 27 20 - 32 mmol/L 04/13/2020 5:27 PM CDT [facility] Anion Gap 7 3 - 14 mmol/L 04/13/2020 5:27 PM CDT [facility] Glucose 158(H) 70 - 99 mg/dL 04/13/2020 5:27 PM CDT [facility] Urea Nitrogen 15 7 - 30 mg/dL 04/13/2020 5:27 PM CDT [facility] Creatinine 0.82 0.52 - 1.04 mg/dL 04/13/2020 5:27 PM CDT [facility] GFR Estimate 76 >60 mL/min/{1. 73_m2} 04/13/2020 5:27 PM CDT [facility] Comment: Non GFR Calc Starting 07/12/2018, serum creatinine based estimated GFR (eGFR) will be calculated using the Chronic Kidney Disease Epidemiology Collaboration (CKD-EPI) equation. GFR Estimate If Black 89 >60 mL/min/{1. 73_m2} 04/13/2020 5:27 PM CDT [facility] Comment: GFR Calc Starting 07/12/2018, serum creatinine based estimated GFR (eGFR) will be calculated using the Chronic Kidney Disease Epidemiology Collaboration (CKD-EPI) equation. Calcium 9.2 8.5 - 10.1 mg/dL 04/13/2020 5:27 PM CDT [facility] Blood specimen (specimen) 04/13/2020 5:02 PM CDT 04/13/2020 5:10 PM CDT us Ryann Huang MD LAB - BLOOD ORDERABLES Final R esult [facility] [address] [place] [address], [facility] [phone] [facility] [address] [place] [address], [facility] [phone] * PAP imaged thin layer, screen (01/13/2016 12:00 AM CDT) PAP LASHAE Meyer Report Patient Name: LEIGH DUBOIS MR#: [id number] Specimen #: [id number] Collected: 01/13/2016 Received: 01/15/2016 Reported: 01/16/2016 14:37 Ordering Phy(s): JAH ROCK SPECIMEN/STAIN PROCESS: Pap imaged thin layer prep screening (Surepath, FocalPoint with guided screening) Pap-Cyto x 1, Reflex HPV if NIL/ASCUS/LSIL x 1 SOURCE: Cervical, endocervical Pap imaged thin layer prep screening (Surepath, FocalPoint with guided screening) SPECIMEN ADEQUACY: Satisfactory for evaluation. -Transformation zone component present. CYTOLOGIC INTERPRETATION: Negative for Intraepithelial Lesion or Malignancy Electronically signed out by: CHANDLER Julien (ASCP) Processed and screened at [facility] CLINICAL HISTORY: Ablation Post Menopausal, Previous normal pap Date of Last Pap: 05/14/14, Papanicolaou Test Limitations: Cervical cytology is a screening test with limited sensitivity; regular screening is critical for cancer prevention; Pap tests are primarily effective for the diagnosis/preventi on of squamous cell carcinoma, not adenocarcinomas or other cancers. TESTING LAB LOCATION: [address] [address] COLLECTION SITE: Client: [facility] Location: ROSARIO MEYER (R) Cytologic material (specimen) 01/13/2016 01/15/2016 12:45 PM CDT Jah Rock MD LAB - OPTIME CLINICAL SPECI MEN Final Result [facility] * COLONOSCOPY (06/22/2008 7:15 AM PHOTOGRAPHIC PROCESSOR) COLONOSCOPY Endoscopy Patient Name: Leigh Dubois Gender: F Procedure Date: 06/22/2008 7:15 AM Date of : 1955 Age: 52 Admit Type: Outpatient Attending MD: Charly Macedo MD Procedure: Colonoscopy Indications: Average risk screening for malignant neoplasm in the colon Providers: Charly Macedo MD Referring MD: Garrett Lee MD, Jah Rock MD Medicines: Fentanyl 100 micrograms IV, Midazolam 2 mg IV, Atropine 0.6 mg IV Complications: No immediate complications Procedure: - Prior to the procedure, a History and Physical was performed, and patient medication allergies were reviewed. The patient is competent. The risks and benefits of the procedure and the sedation options and risks were discussed with the patient. All questions were answered and informed consent was obtained. Patient identification and proposed procedure were verified by the physician in the procedure room. Mental Status Examination: alert and oriented. Airway Examination: normal oropharyngeal airway and neck mobility. Respiratory Examination: clear to auscultation. CV Examination: normal. ASA Grade Assessment: I - A normal, healthy patient. After reviewing the risks and benefits, the patient was deemed in satisfactory condition to undergo the procedure. The anesthesia plan was to use moderate sedation / analgesia (conscious sedation). Immediately prior to administration of medications, the patient was re-assessed for adequacy to receive sedatives. The heart rate, respiratory rate, oxygen saturations, blood pressure, adequacy of pulmonary ventilation, and response to care were monitored throughout the procedure. The physical status of the patient was re-assessed after the procedure. After obtaining informed consent, the colonoscope was passed under direct vision. Throughout the procedure, the patient's blood pressure, pulse, and oxygen saturations were monitored continuously. The [id number] #[id number] was introduced through the anus and advanced to the ileum. The colonoscopy was performed without difficulty. The patient tolerated the procedure well. The quality of the prep was good. Findings: The digital rectal exam was normal. The rectum, sigmoid colon, descending colon, splenic flexure, transverse colon, hepatic flexure, ascending colon, cecum, ileocecal valve and ileum appeared normal. The retroflexed view of the anal verge was normal and showed no anal or rectal abnormalities. The terminal ileum appeared normal. Impression: - The rectum, sigmoid colon, descending colon, splenic flexure, transverse colon, hepatic flexure, ascending colon, cecum, ileocecal valve and terminal ileum are normal. - The terminal ileum is normal. Recommendation: - Collect Hemoccults on three spontaneously passed stools annually. - Flexible Sigmoidoscopy in 3 years. - Return to primary care physician PRN. Raj Macedo M.D Charly Macedo MD Signed Date: 06/22/2008 8:03 AM Number of Addenda: 0 I was physically present for the entire viewing portion of the exam. Note initiated on 06/22/2008 7:17 AM RADIOLOGY RESULTS COLONOSCOPY RADIOLOG Y RESULTS 06/22/2008 7:15 AM PHOTOGRAPHIC PROCESSOR Garrett Lee MD PROCEDURES Final Result Performing Organization Address City/[facility] [employer] de Phone Number RADIOLOGY RESULTS * TSH [[id number]] (01/12/2008) TSH 1.470@ mcU/mL [facility] us Provider Abstract LABORATORY Final Result [facility] * A.M.A. LIPID PANEL (01/23/2004 9:21 AM CDT) Cholesterol 194 <200 mg/dL [facility] Comment: Cholesterol Reference Range: <200 The NCEP recommends further evaluation of: 1. Patients with cholesterol greater than 200 mg/dL if additional risk factors are present. 2. All patients with a cholesterol greater than 240 mg/dL. Triglycerides 136 <150 mg/dL [facility] [place] HDL Cholesterol 54 >40 mg/dL [facility] [place] LDL Cholesterol Calculated 113 <130 mg/dL [facility] [place] VLDL-Cholesterol 27 0 - 30 mg/dL [facility] [place] Cholesterol/HDL Ratio 3.6 0.0 - 5.0 [facility] [place] 01/23/2004 9:21 AM CDT 01/23/2004 9:26 AM CDT us Tania Moreno MD LABORATORY Final Result [facility] [address] [place] [address] from Last 3 Months or Most Recently Relevant to Health Maintenance Insurance BCBS MEDICARE ADVANTAGE [facility] MEDICARE ADVANTAGE Care Teams Property Site Manager Relationship Specialty Start Date End Date Garrett Lee MD PCP - General Family Practice 04/21/19
--- OUTSIDE RECORDS SUMMARY | 2024-06-19 08:36 | XMS_ITS | Encounter Summary ---
Author Organization [place] Address [address] [place] [address] Care Team Providers Care Financial Services Technician Name Role Phone Juan Rock MD Primary Care Provider Garrett Madera MD Primary Care Provider Reason for Visit * Reason Comments Medication Refill Encounter Details Date Type Department Care Team (Late st Contact Info) Description 06/18/[address] [facility] [address] [place] [phone] Juan Rock MD NO INFO AVAILABLE 02/16/23 Medication Refill Social History Tobacco Use Types Packs/Day Years Used Date Smoking Tobacco: Never Smokeless Tobacco: Never Alcohol Use Standard Drinks/Week Comments No 0 (1 standard drink = 0.6 oz pur e alcohol) Comments No Sex and Gender Information Value Date Recorded Sex Assigned at Not on file Legal Sex Female 3:12 AM BENEFITS ANALYST Gender Identity Not on file Sexual Orientation Not on file documented as of this encounter Miscellaneous Notes * Telephone Encounter - Denia Henry RN - 06/18/2017 10:24 AM BENEFITS ANALYST E request received for Zoloft. Last office visit 09/23/16. See last PHQ-9 score and advise. PHQ-9 score: PHQ-9 SCORE 11/27/2011 Total Score 0 Routing refill request to provider for review/approval because: PHQ-9 not current; last office visit more than 6 months ago FITS ANALYST documented in this encounter Plan of Treatment Not on file documented as of this encounter Visit Diagnoses Diagnosis PMDD (premenstrual dysphoric disorder) Premenstrual tension syndromes documented in this encounter Care Teams Financial Services Technician Relationship Specialty Start Date End Date Juan Rock MD PCP - General town administrator 02/15/15 04/20/19 Garrett Lee MD PCP - General Family Practice 04/21/19 documented as of this encounter
--- OUTSIDE RECORDS SUMMARY | 2024-06-19 08:36 | XMS_ITS | Clinical Summary ---
Author Organization [employer] Address [address] [place] [address] Care Team Providers Care Insole Cementer Name Role Phone Unavailable Primary Care Provider [...] for each transition of care or referral. [employer] Allergies Active Allergy Reactions Criticality Noted Date Comments Sulfa Antibiotics 04/13/2020 Eye drops Medications Medication Sig Dispensed Refills Start Date End Date Status fluticasone propionate (FLONASE) 50 MCG/ACT nasal solution Place 1 Sulphur into both nostrils two times a day. [...] 95 04/13/2020 3:00 PM CDT Temperature 36.6 C (97.9 F) 04/13/2020 3:00 PM CDT Respiratory Rate 18 03/24/2020 12:35 PM CDT [...] - PCV) 2021 06/10/2019 COVID-19 Vaccine (3 - season) 2024 09/22/2020, 08/25/2020 Influenza (#1) 2024 05/07/2020, 04/25, 05/15/2018, Additional history exists RSV (1 - 1-dose 75+ series) 11/20/2031 HepA Aged Out 01/03/1999 No longer eligi [...] on patient's age to complete this topic Infant RSV Aged Out No longer eligi ble based on patient's age to complete this topic MCV4 Aged Out No longer eligi ble based on patient's age to complete this topic
--- OUTSIDE RECORDS SUMMARY | 2024-06-19 08:36 | XMS_ITS | Referral Summary ---
Author Organization [facility] Address [address] [place] [address] Care Team Providers Care Environmental Department Manager Name Role Phone Garrett Lee MD Primary Care Provider [phone] Allergies Active Allergy Reactions Criticality Noted Date [...] Active fluticasone (FLONASE) 50 MCG/ACT nasal spray [place] 1-2 sprays into both nostrils daily 3 Package 1 05/14/20 14 Active hydrochlorothiazid e (HYDRODIURIL) 25 MG tablet Take 25 mg by mouth daily Active potassium chloride (K-DUR) 10 MEQ tablet Take 10 mEq by mouth daily Active metFORMIN (GLUCOPHAGE-XR) 750 MG 24 hr tablet Take 1,500 mg by mouth daily ([id number]) Active tobramycin (TOBREX) 0.3 % ophthalmic solutionIndication [...] mg by mouth daily Active Calcium-Magnesium- Zinc (YDF-SGH-DHMM OR) Take 1 tablet by mouth daily [...] on file Legal Sex Female 3:12 AM DIAMOND WHEEL MOLDER Gender Identity Not on file Sexual Orientation [...] 02/21/2024 6:09 AM CDT Plan of Treatment Not on file Procedures Procedure Name Priority Date/Time Associated Diagnosis Comments GLUCOSE STAT 02/21/2024 6:28 AM CDT MA SCREENING BILATERAL W/ PORTER Routine 01/06/2024 10:28 AM CDT Visit for screening mammogram BASIC METABOLIC PANEL STAT 04/13/2020 5:02 PM CDT PAP IMAGED THIN LAYER SCREEN Routine 01/13/2016 12:00 AM CDT COLONOSCOPY Routine 06/22/2008 7:15 AM DIAMOND WHEEL MOLDER HCL TSH Routine 01/12/2008 DIAGNOSIS NOT YET [...] 6:28 AM CDT 02/21/2024 6:43 AM CDT Rios Young MD LAB - BLOOD ORDERABLES Fi nal Result LABORATORY [facility] Acute Care Lab [address] 1[address] floor, [address] [place] [address], [place] [phone] * MA Screening Bilateral w/ Porter (01/06/2024 [...] 133 - 144 mmol/L 04/13/2020 5:21 PM [facility] Potassium 3.7 3.4 - 5.3 mmol/L 04/13/2020 5:21 PM [facility] Chloride 104 94 - 109 mmol/L 04/13/2020 5:21 PM [facility] Carbon Dioxide 27 20 - 32 mmol/L 04/13/2020 5:27 PM [facility] Anion Gap 7 3 - 14 mmol/L 04/13/2020 5:27 PM [facility] Glucose 158(H) 70 - 99 mg/dL 04/13/2020 5:27 PM [facility] Urea Nitrogen 15 7 - 30 mg/dL 04/13/2020 5:27 PM [facility] Creatinine 0.82 0.52 - 1.04 mg/dL 04/13/2020 5:27 PM [facility] GFR Estimate 76 >60 mL/min/{1. 73_m2} 04/13/2020 5:27 PM [facility] Comment: Non GFR Calc Starting 07/12/2018, serum creatinine based estimated GFR (eGFR) will be calculated using the Chronic Kidney Disease Epidemiology Collaboration (CKD-EPI) equation. GFR Estimate If Black 89 >60 mL/min/{1. 73_m2} 04/13/2020 5:[address] [facility] Comment: GFR Calc Starting 07/12/2018, serum creatinine based estimated GFR (eGFR) will be calculated using the Chronic Kidney Disease Epidemiology Collaboration (CKD-EPI) equation. Calcium 9.2 8.5 - 10.1 mg/dL 04/13/2020 5:[address] [facility] Blood specimen (specimen) 04/13/2020 5:02 PM CDT 04/13/2020 5:10 PM CDT us Ryann Huang MD LAB - BLOOD ORDERABLES Final R esult [facility] [address] [place] [address], [place] [phone] [facility] [address] [place] [address], [place] [phone] * PAP imaged thin layer, screen (01/13/2016 12:00 AM CDT) PAP NIL BETSY Melendez Report Patient Name: LEIGH DUBOIS MR#: [id number] Specimen #: [id number] Collected: 01/13/2016 Received: 01/15/2016 Reported: 01/16/2016 14:37 [...] CHANDLER Julien (ASCP) Processed and screened at [facility], [facility] CLINICAL HISTORY: Ablation Post Menopausal, Previous normal pap Date of Last Pap: 05/14/14, Papanicolaou Test Limitations: Cervical cytology is a screening test with limited sensitivity; regular screening is critical for cancer prevention; Pap tests are primarily effective for the diagnosis/preventi on of squamous cell carcinoma, not adenocarcinomas or other cancers. TESTING LAB LOCATION: [facility] [address] [place] [address] COLLECTION SITE: Client: [facility] Location: [facility] (R) [facility] Cytologic material (specimen) 01/13/2016 01/15/2016 12:45 PM CDT Jah Rock MD LAB - OPTIME CLINICAL SPECI MEN Final Result COPATH * COLONOSCOPY (06/22/2008 7:15 AM DIAMOND WHEEL MOLDER) COLONOSCOPY Endoscopy Patient Name: Leigh Dubois Gender: [...] and oxygen saturations were monitored continuously. The [id number]-[id number] #[id number] was introduced through the anus and advanced [...] COLONOSCOPY RADIOLOG Y RESULTS 06/22/2008 7:15 AM DIAMOND WHEEL MOLDER Garrett Lee MD PROCEDURES Final Result RADIOLOGY RESULTS * TSH [[id number]] (01/12/2008) TSH 1.470@ mcU/mL [facility] Provider Abstract LABORATORY Final Result [facility] * A.M.A. LIPID PANEL (01/23/2004 9:21 AM CDT) Cholesterol 194 <200 mg/dL [facility] [place] Comment: Cholesterol Reference Range: <200 The NCEP recommends further evaluation of: 1. Patients with cholesterol greater than 200 mg/dL if additional risk factors are present. 2. All patients with a cholesterol greater than 240 mg/dL. Triglycerides 136 <150 mg/dL [facility] [place] HDL Cholesterol 54 >40 mg/dL [facility] [place] LDL Cholesterol Calculated 113 <130 mg/dL [facility] [place] VLDL-Cholesterol 27 0 - 30 mg/dL [facility] Cholesterol/HDL Ratio 3.6 0.0 - 5.0 [facility] [place] 01/23/2004 9:21 AM CDT 01/23/2004 9:26 AM CDT Tania Moreno MD LABORATORY Final Result [facility] [address] [place] [address] from Last 3 Months or Most Recently Relevant to Health Maintenance Insurance [facility] MEDICARE ADVANTAGE [facility] MEDICARE ADVANTAGE Care Teams Environmental Department Manager Relationship Specialty Start Date End Date Garrett Lee MD PCP - General Family Practice 04/21/19
--- OUTSIDE RECORDS SUMMARY | 2024-06-19 08:37 | XMS_ITS | Clinical Summary ---
Author Organization [facility] Address [place], [place] [address] Care Team Providers Care Land Development Manager Name Role Phone Pcp, No Primary Care [...] Diffuse cystic mastopathy 09/18/2009 Unspecified examination 09/18/2009 Overview (09/18/2009): Last PAP smear: 12/2007 Last Breast Exam: 12/2007 Last mammogram: 12/2007 Last lipids: 11/2006 Last colonoscopy: 05/2008 Encounters Date Type Department Care Team Description 05/15/2024 8:30 AM CDT Ancillary Procedure [facility] [address] [facility] [address] [place] [address] 05/15/2024 Travel 05/05/2024 Orders Only [facility] [address] [facility] [address] [place] [address] Self, Referral <No scans attached> from Last 3 Months Immunizations Name Administration Dates Next Due Hepatitis [...] Comments Blood Pressure 122/70 09/11/2012 3:09 PM DOPE DRY HOUSE OPERATOR Pulse 88 09/11/2012 3:09 PM DOPE DRY HOUSE OPERATOR Temperature 37.6 C (99.6 F) 09/11/2012 3:09 PM DOPE DRY HOUSE OPERATOR Respiratory Rate 16 09/11/2012 3:09 PM DOPE DRY HOUSE OPERATOR Oxygen Saturation 97% 09/11/2012 3:09 PM DOPE DRY HOUSE OPERATOR Inhaled Oxygen Concentration - - Weight 93.4 kg (206 lb) 06/13/2011 3:26 PM DOPE DRY HOUSE OPERATOR Height 157.5 cm (5' 2) 06/13/2011 3:26 PM DOPE DRY HOUSE OPERATOR Body Mass Index 37.68 06/13/2011 3:26 PM DOPE DRY HOUSE OPERATOR Plan of Treatment Health Maintenance Due Date Last Done Comments Tdap 11/20/1967 Depression screening for age 12+ 1968 BMI (ht and wt on same day) for age 18+ 1974 Hepatitis C screening for ag e 18-79 1974 Colonoscopy through age 75 2001 Lipids for age 45-75 2001 Mammogram for age 45-75 2001 Zoster (shingles) series for age 50+ (1 of 2) 2006 Tetanus booster 05/12/2016 05/12/2006 DEXA/DXA scan for age 65+ 2021 Pneumococcal series for age 65+ (1 of 1 - PCV) 2021 COVID-19 vaccine series (5 - season) 2024 08/14/2022, 05/31/2021, 09/22/2020, Additional history exists Influenza for age 65+ 03/26/2024 04/15/2009 Procedures Procedure Name Priority Date/Time Associated Diagnosis Comments CT CARDIAC CALCIUM SCORE ONLY WO SINGLE READ Routine 05/15/2024 8:36 AM CDT Screening for cardiovascular condition from Last 3 Months Results * CT CARDIAC CALCIUM SCORE ONLY WO SINGLE READ (05/15/2024 8:36 AM CDT) Anatomical Region Laterality Modality Computed Tomogra phy Impressions 05/17/2024 9:20 AM CDT Left lower lobe small micronodule, series 3 image 32. Optional follow-up CT scan in the presence of any significant risk factor (i.e., history of smoking or previous neoplasm). No additional acute or suspicious extracardiac imaging abnormalities. Please note that all CT scans at this facility use dose modulation, iterative reconstruction and/or weight-based dosing when appropriate to reduce radiation dose to as low as reasonably achievable. Julio Paredes M.D. Pediatric/Diagnostic Radiologist Cardiothoracic Imaging [email or web address] SH[facility]/rcd Narrative 05/17/2024 9:20 AM CDT For Patients: As a result of the Cures Act, medical imaging exams and procedure reports are released immediately into your electronic medical record. You may view this report before your referring provider. If you have questions, please contact your health care provider. CT CARDIAC CALCIUM SCORING, 05/15/2024 PATIENT HISTORY: Screening for cardiovascular condition. REPORT: High-resolution, ECG-synchronized noncontrast computed tomography of the heart with attention to the coronary arteries was performed. Coronary calcification analyzed using Siemens calcium scoring software. These are the results of the evaluation. CT Calcium Scoring: This cardiac CT examination will provide you with a coronary artery calcium score. A coronary artery calcium score is a measurement of the amount of calcified plaque in the coronary arteries, the arteries that supply blood to the heart muscle. The coronary artery calcium score is calculated based on the number, size, and density of the calcified plaques in the coronary arteries. The amount of calcified coronary plaque has been shown to directly correlate with future risk for heart disease. The coronary artery calcium is a marker of how much plaque has accumulated in the [place] of the coronary arteries. It is not a test for blockages. This test is intended to assess cardiovascular risk in patients without symptoms. It is not intended to be a test for individuals with chest pain or other possible symptoms suggestive of heart disease. If you are having chest pain or other potential cardiovascular symptoms, see your physician. Calcium Score: Left main = 0 Left anterior descending = 38 Left circumflex = 0 Right coronary artery = 21 Total calcium score = 59 [address] the patient at the 71st percentile for matched age and gender. Calcified Plaque Seen Assessment: Your cardiac CT examination demonstrates plaque in the coronary arteries. The amount of plaque in the coronary arteries directly correlates with the risk for heart attack and other coronary events (such as bypass or stenting). As discussed above, the coronary artery calcium score is intended for risk assessment in patients without cardiovascular symptoms. If you are having chest pain or other potential cardiovascular symptoms, see your physician. Recommendations: To lower your cardiovascular risk, we strongly recommend adherence to healthy lifestyle behaviors including: Following a heart healthy diet focused on modest portion sizes, a high intake of fresh fruits and vegetables, whole grains, healthy fats (olive oil, nuts and seeds, avocados), and healthy proteins (unprocessed meats, fish, legumes). Following an active lifestyle including 30-45 minutes of moderate intensity exercise 5-6 times per week. Avoidance of tobacco products. Cardiovascular preventive medication, including a daily aspirin and cholesterol-lowering statin medications have been shown to reduce the risk of a future heart attack and stroke, especially in individuals at higher risk for heart disease. We recommend that individuals with calcified plaque discuss the risks and benefits of cholesterol-lowering medications, blood pressure medications, and aspirin with their primary care physician. Cholesterol-lowering medications have been shown to reduce the risk of heart attack in individuals at elevated risk, including in patients with n ormal cholesterol levels at baseline. A coronary artery calcium score is not a test for blockages, it is a test for underlying plaque. An elevated calcium score is not an indication for additional testing for coronary heart disease though one may be considered based on your clinical history. The results of your coronary artery calcium score should be reviewed by your primary care provider or shareholder. These recommendations are generalized and may not specifically apply to you as an individual. Your primary care physician is in the best position to provide advice on your care and clinical decisions should ultimately be made by you and your physician. Referral Self CT from Last 3 Months Care Teams Land Development Manager Relationship Specialty Start Date End Date Pcp, No . PCP - General 01/06/11
== END 2024-06-19 08:30 | disposition home or self-care (01) ==
PROVIDERS: PCP Family Medicine; Visit Provider Family Medicine
DX: Z00.00 Encounter for general adult medical examination without abnormal findings (principal); E78.5 Hyperlipidemia, unspecified; E03.9 Hypothyroidism, unspecified; E13.9 Other specified diabetes mellitus without complications; E78.00 Pure hypercholesterolemia, unspecified
CPT/HCPCS: 80061; 84439; 84443

== ENCOUNTER 2024-06-26 09:13 | Outpatient (CLI) | payer MEDICARE, SELFPAY ==
--- OUTSIDE RECORDS SUMMARY | 2024-06-26 15:48 | XMS_ITS | Clinical Summary ---
Author Organization [facility] Address [address] [place] [address] Care Team Providers Care Logistics Tech Name Role Phone Garrett Lee MD Primary Care Provider [phone] Allergies Active Allergy Reactions Criticality Noted Date [...] Active fluticasone (FLONASE) 50 MCG/ACT nasal spray [place] 1-2 sprays into both nostrils daily 3 Package 1 05/14/20 14 Active hydrochlorothiazid e (HYDRODIURIL) 25 MG tablet Take 25 mg by mouth daily Active potassium chloride (K-DUR) 10 MEQ tablet Take 10 mEq by mouth daily Active metFORMIN (GLUCOPHAGE-XR) 750 MG 24 hr tablet Take 1,500 mg by mouth daily ([id number]) Active tobramycin (TOBREX) 0.3 % ophthalmic solutionIndication [...] mg by mouth daily Active Calcium-Magnesium- Zinc (PGO-PPL-VIKW OR) Take 1 tablet by mouth daily [...] on file Legal Sex Female 3:12 AM INHALATION THERAPY AIDES TEACHER Gender Identity Not on file Sexual Orientation [...] AM CDT COLONOSCOPY Routine 06/22/2008 7:15 AM INHALATION THERAPY AIDES TEACHER HCL TSH Routine 01/12/2008 DIAGNOSIS NOT YET [...] - BLOOD ORDERABLES Fi nal Result LABORATORY [facility] Acute Care Lab [address] 1st floor, [address] [place] [address], [facility] [phone] * [place] Screening Bilateral w/ Porter (01/06/2024 [...] - 144 mmol/L 04/13/2020 5:21 PM CDT [facility] Potassium 3.7 3.4 - 5.3 mmol/L 04/13/2020 5:21 PM CDT [facility] Chloride 104 94 - 109 mmol/L 04/13/2020 5:21 PM CDT [facility] Carbon Dioxide 27 20 - 32 mmol/L 04/13/2020 5:27 PM CDT [facility] Anion Gap 7 3 - 14 mmol/L 04/13/2020 5:27 PM CDT [facility] Glucose 158(H) 70 - 99 mg/dL 04/13/2020 5:27 PM CDT [facility] Urea Nitrogen 15 7 - 30 mg/dL 04/13/2020 5:27 PM CDT [facility] Creatinine 0.82 0.52 - 1.04 mg/dL 04/13/2020 5:27 PM CDT [facility] GFR Estimate 76 >60 mL/min/{1. 73_m2} 04/13/2020 5:27 PM CDT [facility] Comment: Non GFR Calc Starting 07/12/2018, serum creatinine based estimated GFR (eGFR) will be calculated using the Chronic Kidney Disease Epidemiology Collaboration (CKD-EPI) equation. GFR Estimate If Black 89 >60 mL/min/{1. 73_m2} 04/13/2020 5:27 PM CDT [facility] Comment: GFR Calc Starting 07/12/2018, serum creatinine based estimated GFR (eGFR) will be calculated using the Chronic Kidney Disease Epidemiology Collaboration (CKD-EPI) equation. Calcium 9.2 8.5 - 10.1 mg/dL 04/13/2020 5:27 PM CDT [facility] Blood specimen (specimen) 04/13/2020 5:02 PM CDT 04/13/2020 5:10 PM CDT us Ryann Huang MD LAB - BLOOD ORDERABLES Final R esult [facility] [address] [place] [address], [facility] [phone] [facility] [address] [place] [address], [facility] [phone] * PAP imaged thin layer, screen (01/13/2016 12:00 AM CDT) PAP LASHAE Meyer Report Patient Name: LEIGH DUBOIS MR#: [id number] Specimen #: [id number] Collected: 01/13/2016 Received: 01/15/2016 Reported: 01/16/2016 14:37 [...] CHANDLER Julien (ASCP) Processed and screened at [facility] CLINICAL HISTORY: Ablation Post Menopausal, Previous normal pap Date of Last Pap: 05/14/14, Papanicolaou Test Limitations: Cervical cytology is a screening test with limited sensitivity; regular screening is critical for cancer prevention; Pap tests are primarily effective for the diagnosis/preventi on of squamous cell carcinoma, not adenocarcinomas or other cancers. TESTING LAB LOCATION: [address] [address] COLLECTION SITE: Client: [facility] Location: [facility] (R) Cytologic material (specimen) 01/13/2016 01/15/2016 12:45 PM CDT Jah Rock MD LAB - OPTIME CLINICAL SPECI MEN Final Result COP[facility] * COLONOSCOPY (06/22/2008 7:15 AM INHALATION THERAPY AIDES TEACHER) COLONOSCOPY Endoscopy Patient Name: Leigh Dubois Gender: [...] oxygen saturations were monitored continuously. The [id number] #[id number] was introduced through the anus and advanced [...] COLONOSCOPY RADIOLOG Y RESULTS 06/22/2008 7:15 AM INHALATION THERAPY AIDES TEACHER Garrett Lee MD PROCEDURES Final Result Performing Organization Address City/[facility] Co de Phone Number RADIOLOGY RESULTS * TSH [[id number]] (01/12/2008) TSH 1.470@ mcU/mL [facility] us Provider [...] than 240 mg/dL. Triglycerides 136 <150 mg/dL [facility] [place] HDL Cholesterol 54 >40 mg/dL [facility] [place] LDL Cholesterol Calculated 113 <130 mg/dL [facility] [place] VLDL-Cholesterol 27 0 - 30 mg/dL [facility] [place] Cholesterol/HDL Ratio 3.6 0.0 - 5.0 [facility] [place] 01/23/2004 9:21 AM CDT 01/23/2004 9:26 AM CDT us Tania Moreno MD LABORATORY Final Result [facility] [address] [place] [address] from Last 3 Months or Most Recently Relevant to Health Maintenance Insurance [employer] MEDICARE ADVANTAGE [facility] MEDICARE ADVANTAGE Care Teams Logistics Tech Relationship Specialty Start Date End Date Garrett Lee MD PCP - General Family Practice 04/21/19
--- OUTSIDE RECORDS SUMMARY | 2024-06-26 15:48 | XMS_ITS | Referral Summary ---
Author Organization [facility] Address [address] [place] [address] Care Team Providers Care Flap Presser Name Role Phone Garrett Lee MD Primary Care Provider [phone] Allergies Active Allergy Reactions Criticality Noted Date [...] Active fluticasone (FLONASE) 50 MCG/ACT nasal spray [place] 1-2 sprays into both nostrils daily 3 Package 1 05/14/20 14 Active hydrochlorothiazid e (HYDRODIURIL) 25 MG tablet Take 25 mg by mouth daily Active potassium chloride (K-DUR) 10 MEQ tablet Take 10 mEq by mouth daily Active metFORMIN (GLUCOPHAGE-XR) 750 MG 24 hr tablet Take 1,500 mg by mouth daily ([id number]) Active tobramycin (TOBREX) 0.3 % ophthalmic solutionIndication [...] mg by mouth daily Active Calcium-Magnesium- Zinc (KCZ-LOH-AGYC OR) Take 1 tablet by mouth daily [...] on file Legal Sex Female 3:[address] WORKER Gender Identity Not on file Sexual Orientation [...] AM CDT COLONOSCOPY Routine 06/22/2008 7:[address] WORKER HCL TSH Routine 01/12/2008 DIAGNOSIS NOT YET [...] - BLOOD ORDERABLES Fi nal Result LABORATORY [facility] [address] 1[address] floor, Room [address] [place] [address], [place] [phone] * [place] Screening Bilateral w/ Porter (01/06/2024 [...] 133 - 144 mmol/L 04/13/2020 5:21 PM [facility] Potassium 3.7 3.4 - 5.3 mmol/L 04/13/2020 5:21 PM [facility] Chloride 104 94 - 109 mmol/L 04/13/2020 5:21 PM [facility] Carbon Dioxide 27 20 - 32 mmol/L 04/13/2020 5:27 PM [facility] Anion Gap 7 3 - 14 mmol/L 04/13/2020 5:27 PM [facility] Glucose 158(H) 70 - 99 mg/dL 04/13/2020 5:27 PM [facility] Urea Nitrogen 15 7 - 30 mg/dL 04/13/2020 5:27 PM [facility] Creatinine 0.82 0.52 - 1.04 mg/dL 04/13/2020 5:27 PM [facility] GFR Estimate 76 >60 mL/min/{1. 73_m2} 04/13/2020 5:27 PM [facility] Comment: Non GFR Calc Starting 07/12/2018, serum creatinine based estimated GFR (eGFR) will be calculated using the Chronic Kidney Disease Epidemiology Collaboration (CKD-EPI) equation. GFR Estimate If Black 89 >60 mL/min/{1. 73_m2} 04/13/2020 5:27 PM CDT [facility] Comment: GFR Calc Starting 07/12/2018, serum creatinine based estimated GFR (eGFR) will be calculated using the Chronic Kidney Disease Epidemiology Collaboration (CKD-EPI) equation. Calcium 9.2 8.5 - 10.1 mg/dL 04/13/2020 5:27 PM CDT [facility] Blood specimen (specimen) 04/13/2020 5:02 PM CDT 04/13/2020 5:10 PM CDT us Ryann Huang MD LAB - BLOOD ORDERABLES Final R esult [facility] [address] [place] [address], [facility] [phone] [facility] [address] [place] [address], [facility] [phone] * PAP imaged thin layer, screen (01/13/2016 12:00 AM CDT) PAP NIL BETSY Melendez Report Patient Name: LEIGH DUBOIS MR#: [id number] Specimen #: [id number] Collected: 01/13/2016 Received: 01/15/2016 Reported: 01/16/2016 14:37 [...] CHANDLER Julien (ASCP) Processed and screened at [facility], [facility] CLINICAL HISTORY: Ablation Post Menopausal, Previous normal pap Date of Last Pap: 05/14/14, Papanicolaou Test Limitations: Cervical cytology is a screening test with limited sensitivity; regular screening is critical for cancer prevention; Pap tests are primarily effective for the diagnosis/preventi on of squamous cell carcinoma, not adenocarcinomas or other cancers. TESTING LAB LOCATION: [facility] [address] [place] [address] COLLECTION SITE: Client: [facility] Location: [facility] Cytologic material (specimen) 01/13/2016 01/15/2016 12:45 PM CDT Jah Rock MD LAB - OPTIME CLINICAL SPECI MEN Final Result [facility] * COLONOSCOPY (06/22/2008 7:[address]) COLONOSCOPY Endoscopy Patient Name: Leigh Dubois Gender: [...] oxygen saturations were monitored continuously. The [id number] #[id number] was introduced through the anus and advanced [...] COLONOSCOPY RADIOLOG Y RESULTS 06/22/2008 7:[address] Garrett Lee MD PROCEDURES Final Result RADIOLOGY RESULTS * TSH [[id number]] (01/12/2008) TSH 1.470@ mcU/mL [facility] Provider Abstract LABORATORY Final Result [facility] * A.M.A. LIPID PANEL (01/23/2004 9:21 AM CDT) Cholesterol 194 <200 mg/dL [facility] Comment: Cholesterol Reference Range: <200 The NCEP recommends further evaluation of: 1. Patients with cholesterol greater than 200 mg/dL if additional risk factors are present. 2. All patients with a cholesterol greater than 240 mg/dL. Triglycerides 136 <150 mg/dL [facility] HDL Cholesterol 54 >40 mg/dL [facility] LDL Cholesterol Calculated 113 <130 mg/dL [facility] VLDL-Cholesterol 27 0 - 30 mg/dL [facility] Cholesterol/HDL Ratio 3.6 0.0 - 5.0 [facility] 01/23/2004 9:21 AM CDT 01/23/2004 9:26 AM CDT Tania Moreno MD LABORATORY Final Result [facility] [address] [place] [address] from Last 3 Months or Most Recently Relevant to Health Maintenance Insurance [facility] MEDICARE ADVANTAGE [facility] MEDICARE ADVANTAGE Care Teams Flap Presser Relationship Specialty Start Date End Date Garrett Lee MD PCP - General Family Practice 04/21/19
--- OUTSIDE RECORDS SUMMARY | 2024-06-26 15:48 | XMS_ITS | Clinical Summary ---
Author Organization [facility] Address [address] [place] [address] Care Team Providers Care Sqe Name Role Phone Unavailable Primary Care Provider [...] for each transition of care or referral. [place] Allergies Active Allergy Reactions Criticality Noted Date Comments Sulfa Antibiotics 04/13/2020 Eye drops Medications Medication Sig Dispensed Refills Start Date End Date Status fluticasone propionate (FLONASE) 50 MCG/ACT nasal solution Place 1 [place] into both nostrils two times a day. [...]
--- OUTSIDE RECORDS SUMMARY | 2024-06-26 15:48 | XMS_ITS | Encounter Summary ---
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 [id number] JAH ROCK MD MT: Document: [id number] [place], [place] Name: LEIGH DUBOIS LCN: SDS DSC: 03/16/2003 [place], [place] Name: MR#: : Procedure Date: LEIGH DUBOIS -26 [id number] Doctor: JAH ROCK MD OPERATIVE REPORT Electronically filed by Elle Rosenbaum 04/18/2003 8:28 AM documented in this encounter Plan of Treatment Not on file documented as of this encounter Visit Diagnoses Diagnosis DIAGNOSIS NOT YET DEFINED- Primary documented in this encounter Care Teams Fish Agent Relationship Specialty Start Date End Date Tania Moreno MD [address] [place] [address] PCP - General 02/02/03 02/14/15 Jah Rock MD [address] [place] [address] PCP - General orthopedics nurse 02/15/15 04/20/19 Garrett Lee MD [address] [place] [address] PCP - General Family Practice 04/21/19 documented as of this encounter
--- OUTSIDE RECORDS SUMMARY | 2024-06-26 15:48 | XMS_ITS | Clinical Summary ---
Author Organization [facility] Address [place], [place] [address] Care Team Providers Care Hand Cloth Cutter Name Role Phone Pcp, No Primary Care [...] Description 05/15/2024 8:30 AM CDT Ancillary Procedure [facility] [address] [facility] [address] [place] [address] 05/15/2024 Travel 05/05/2024 Orders Only [facility] [address] [facility] [address] [place] [address] Self, Referral <No scans attached> from Last [...] Comments Blood Pressure 122/70 09/11/2012 3:09 PM NOISE TESTER Pulse 88 09/11/2012 3:09 PM NOISE TESTER Temperature 37.6 C (99.6 F) 09/11/2012 3:09 PM NOISE TESTER Respiratory Rate 16 09/11/2012 3:09 PM NOISE TESTER Oxygen Saturation 97% 09/11/2012 3:09 PM NOISE TESTER Inhaled Oxygen Concentration - - Weight 93.4 kg (206 lb) 06/13/2011 3:26 PM NOISE TESTER Height 157.5 cm (5' 2) 06/13/2011 3:26 PM NOISE TESTER Body Mass Index 37.68 06/13/2011 3:26 PM NOISE TESTER Plan of Treatment Health Maintenance Due Date [...] reviewed by your primary care provider or icing mixer. These recommendations are generalized and may not specifically apply to you as an individual. Your primary care physician is in the best position to provide advice on your care and clinical decisions should ultimately be made by you and your physician. Referral Self CT from Last 3 Months Care Teams Hand Cloth Cutter Relationship Specialty Start Date End Date Pcp, No . PCP - General 01/06/11
--- OUTSIDE RECORDS SUMMARY | 2024-06-26 15:48 | XMS_ITS | Encounter Summary ---
Author Organization [facility] Address [address] [place] [address] Care Team Providers Care Linux Architect Name Role Phone Juan Rock MD Primary Care Provider Garrett Madera MD Primary Care Provider [phone] Reason for Visit * Reason Comments Medication Refill Encounter Details Date Type Department Care Team (Late st Contact Info) Description 06/18/2017 Refill [facility] [address] [place] [id number] Juan Rock MD NO INFO AVAILABLE 02/16/23 Medication Refill Social History Tobacco Use Types Packs/Day Years Used Date Smoking Tobacco: Never Smokeless Tobacco: Never Alcohol Use Standard Drinks/Week Comments No 0 (1 standard drink = 0.6 oz pur e alcohol) Comments No Sex and Gender Information Value Date Recorded Sex Assigned at Not on file Legal Sex Female 3:12 AM FOOD SERVICE Gender Identity Not on file Sexual Orientation Not on file documented as of this encounter Miscellaneous Notes * Telephone Encounter - Denia Henry RN - 06/18/2017 10:24 AM FOOD SERVICE E request received for Zoloft. Last office visit 09/23/16. See last PHQ-9 score and advise. PHQ-9 score: PHQ-9 SCORE 11/27/2011 Total Score 0 Routing refill request to provider for review/approval because: PHQ-9 not current; last office visit more than 6 months ago SERVICE documented in this encounter Plan of Treatment Not on file documented as of this encounter Visit Diagnoses Diagnosis PMDD (premenstrual dysphoric disorder) Premenstrual tension syndromes documented in this encounter Care Teams Linux Architect Relationship Specialty Start Date End Date Juan Rock MD PCP - General machine farmworker 02/15/15 04/20/19 Garrett Lee MD PCP - General Family Practice 04/21/19 documented as of this encounter
--- OUTSIDE RECORDS SUMMARY | 2024-06-26 15:48 | XMS_ITS | Encounter Summary ---
Author Organization [facility] Address [address] [place] [address] Care Team Providers Care Oil Well Gun Perforator Operator Name Role Phone Juan Rock MD Primary Care Provider Garrett Madera MD Primary Care Provider [phone] Reason for Visit * Reason Comments Medication Refill zoloft Encounter Details Date Type Department Care Team (Late st Contact Info) Description 03/26/2017 Refill [facility] [address] [place] [id number] Juan Rock MD NO INFO AVAILABLE 02/16/23 Medication Refill (zoloft ) Social History Tobacco Use Types Packs/Day Years Used Date Smoking Tobacco: Never Smokeless Tobacco: Never Alcohol Use Standard Drinks/Week Comments No 0 (1 standard drink = 0.6 oz pur e alcohol) Comments No Sex and Gender Information Value Date Recorded Sex Assigned at Not on file Legal Sex Female 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 SOLICITOR Gender Identity Not on file Sexual Orientation Not on file documented as of this encounter Miscellaneous Notes * Telephone Encounter - Bailey Corcoran RN ([place]) - 03/26/2017 12:13 PM CDT Routing refill request to provider for review/approval because: diagnosis not listed on [facility] protocol for this medication Zoloft Last Written Prescription Date: 03/10/16 Last Fill Quantity: 90, # refills: 3 Last Office Visit with [facility] primary care provider: 09/23/16 Last PHQ-9 score on record= PHQ-9 SCORE 11/27/2011 Total Score 0 documented in this encounter Plan of Treatment Not on file documented as of this encounter Visit Diagnoses Diagnosis PMDD (premenstrual dysphoric disorder) Premenstrual tension syndromes documented in this encounter Care Teams Oil Well Gun Perforator Operator Relationship Specialty Start Date End Date Juan Rock MD PCP - General demurrage clerk 02/15/15 04/20/19 Garrett Lee MD PCP - General Family Practice 04/21/19 documented as of this encounter
== END 2024-06-26 09:14 | disposition home or self-care (01) ==
LOC: NFLDREF 15:45
PROVIDERS: PCP Family Medicine; Referring Provider Family Medicine; Visit Provider Physician Assistant Medical
DX: R31.9 Hematuria, unspecified (principal); N39.0 Urinary tract infection, site not specified
CPT/HCPCS: 87086

== ENCOUNTER 2024-07-05 08:27 | Outpatient (CLI) | payer MEDICARE, SELFPAY | END 2024-07-05 08:28 | disposition home or self-care (01) | LOC: LKVREF 08:28 | PROVIDERS: PCP Family Medicine; Visit Provider Obstetrics & Gynecology | DX: R31.9 Hematuria, unspecified (principal) | CPT/HCPCS: 87086 ==

== ENCOUNTER 2024-07-07 16:02 | Outpatient (CLI) | payer MEDICARE, SELFPAY ==
--- NOTE | 2024-07-07 16:45 | CRLHL7_ITS ---
For Patients: As a result of the Century Cures Act, medical imaging exams and procedure reports are released immediately into your electronic medical record. You may view this report before your referring provider. If you have questions, please contact your health care provider. INDICATION: Hematuria. TECHNIQUE: CT abdomen and pelvis urogram without and with 100 cc Omnipaque 350 IV contrast. Contrast images were obtained in the nephrographic and delayed phases. COMPARISON: None. FINDINGS: Kidneys: Morphology: Unremarkable. Stones: A 6 x 3 mm stone is in the left renal pelvis. A 2nd tiny 2 mm stone is in a left renal calyx. No right-sided stones. Masses: Few tiny cystic lesions. No suspicious mass. Function: Normal bilateral uptake and excretion of IV contrast. Collecting systems and ureters: Unremarkable. Urinary Bladder: Morphology: Unremarkable. Mass: None. A 4 mm peripheral nodule in the left lower lung is of doubtful significance. Other: GI tract is normal in caliber and appearance. The liver is normal in caliber and attenuation. Spleen, pancreas, and adrenal glands are normal. No mass or adenopathy. IMPRESSION: 1. Mild left renal nonobstructive nephrolithiasis. Otherwise unremarkable CT urogram. No other finding to explain hematuria. 2. No other acute or significant findings. Please note that all CT scans at this facility use dose modulation, iterative reconstruction, and/or weight-based dosing when appropriate to reduce radiation dose to as low as reasonably achievable. Dictated by Sunil Mckeon MD @ 07/09/2024 9:12:29 AM (Electronically Signed)
[2024-07-07 16:53] LABS: Creatinine* 0.7 mg/dL (0.5-1.5); Estimated Glomerular Filt Rate 95 ml/min
== END 2024-07-07 16:03 | disposition home or self-care (01) ==
LOC: CT 16:03
PROVIDERS: PCP Family Medicine; Visit Provider Obstetrics & Gynecology
DX: R31.9 Hematuria, unspecified (principal); N20.0 Calculus of kidney
CPT/HCPCS: 36415; 74178; 82565; Q9967

== ENCOUNTER 2025-02-13 08:43 | Outpatient (CLI) | payer MEDICARE, SELFPAY | END 2025-02-13 08:44 | disposition home or self-care (01) | PROVIDERS: PCP Family Medicine; Visit Provider Family Medicine | DX: E03.9 Hypothyroidism, unspecified (principal); E13.9 Other specified diabetes mellitus without complications | CPT/HCPCS: 80048; 84439; 84443 ==

== ENCOUNTER 2025-03-07 12:02 | Outpatient (CLI) | payer MEDICARE, SELFPAY ==
--- NOTE | 2025-03-07 13:30 | CRLHL7_ITS ---
For Patients: As a result of the Cures Act, medical imaging exams and procedure reports are released immediately into your electronic medical record. You may view this report before your referring provider. If you have questions, please contact your health care provider. XR DXA Bone Mineral Density (BMD) Reason for exam: Screening for osteoporosis. Current height (inches): 61.0 Weight (lbs.): 202.0 Menopause age: 58 Ethnicity: White 1. Have you had a previous hip or vertebral fracture? Yes. 2. Have you had any fractures during your adult life which did not result from significant trauma (e.g., auto accident)? Yes. 3. Did either of your parents have a hip fracture? No. 4. Do you smoke? No. 5. Have you ever taken Glucocorticoids? Yes. 6. Do you have rheumatoid arthritis? No. 7. Do you have secondary osteoporosis? No. 8. Do you drink 3 or more alcoholic drinks per day? No. 9. Are you being treated for osteoporosis? No. 10. Have you ever taken any of the following medications: Actonel, Evista, Fosamax, Miacalcin, Reclast, Boniva, Forteo, HRT (i.e., estrogen/hormone therapy), Protelos, Prolia, Vitamin D, Calcium, other ??? please specify. ANSWER: Yes; vitamin D and calcium. 11. Do you have any of the following medical conditions: Anorexia or bulimia, asthma or emphysema, end stage renal disease, hyperparathyroidism, any seizure disorders, cancer, inflammatory bowel diseases, hysterectomy, other ??? please specify. ANSWER: Yes; asthma or emphysema, endometrial cancer, hysterectomy, hyperparathyroidism. 12. What was your maximum height (inches)? 62. 13. Do you perform weightbearing exercise regularly? Yes. 14. Do you regularly consume dairy products? Yes. 15. Do you drink caffeinated beverages? No. 16. At what age did your period start? 14. 17. Are you premenopausal? No. 18. How many full-term pregnancies have you had? 3. 19. Have you ever missed your period for more than 6 months in a row (not including or menopause)? No. TECHNIQUE: Bone mineral density study was performed using the [employer]. FINDINGS: The results of the study expressed as bone mineral density (BMD) are as follows: Lumbar Spine L1 to L4: BMD: 1.232 g/cm2. T-score: 1.7. Z-score: 3.7. Neck Left: BMD: 0.922 g/cm2. T-score: 0.7. Z-score: 2.4. Right: BMD: 0.937 g/cm2. T-score: 0.8. Z-score: 2.5. Total Left: BMD: 1.199 g/cm2. T-score: 2.1. Z-score: 3.5. Right: BMD: 1.188 g/cm2. T-score: 2.0. Z-score: 3.4. IMPRESSION: Normal bone density. EDGARDO YOUNG M.D. Diagnostic Radiologist [email or web address] Transcribed: 3:[address]/Dictated by: Edgardo Young MD @ 03/07/2025 3:03:00 PM (Electronically Signed)
== END 2025-03-07 12:03 | disposition home or self-care (01) ==
LOC: RAD 12:04
PROVIDERS: PCP Family Medicine; Visit Provider Family Medicine
DX: Z13.820 Encounter for screening for osteoporosis (principal)
CPT/HCPCS: 77080

== ENCOUNTER 2025-05-03 09:45 | Outpatient (CLI) | payer MEDICARE, SELFPAY | END 2025-05-03 09:46 | disposition home or self-care (01) | LOC: NFLDREF 23:16 | PROVIDERS: PCP Family Medicine; Referring Provider Family Medicine; Visit Provider Obstetrics & Gynecology | DX: R31.9 Hematuria, unspecified (principal) | CPT/HCPCS: 87086 ==